=== PATIENT | male | born 1945 | race Caucasian/White ===

== ENCOUNTER 2018-07-29 16:36 | Inpatient (IN) | payer MEDICARE ==
[~2018-07-29] VITALS: Ht 180.3 cm; Wt 108.9 kg
--- NOTE | 2018-07-29 16:56 | RAD ---
PQRS Compliance statement: One or more of the following individualized dose reduction techniques were utilized for this examination: 1. Automated exposure control. 2. Adjustment of the mA and/or kV according to patient size. 3. Use of iterative reconstruction technique. Indication:Possible CVA TECHNIQUE: CT head without IV contrast COMPARISON: None FINDINGS: No pathologic extra-axial or intra-axial fluid collection. The basal cisterns are within normal limits. No acute intracranial bleed. Prominent ventricles. No focal loss of chi-white differentiation. Orbits are within normal limits. No suspicious calvarial lesion. Visualized paranasal sinuses and mastoid air cells are clear. IMPRESSION: 1. No acute intracranial bleed. If concern for acute ischemic stroke is high, please consider MRI brain. 2. Prominent ventricles. Correlate with symptoms of normal pressure hydrocephalus. Critical findings were identified on 07/29/2018 4:48 PM, read back and verified with Dr. Andres on 07/29/2018 4:[address] Georges Hneson DO. Electronically signed by: Georges Henson DO (07/29/2018 4:51 PM) [facility]
[2018-07-29 17:03] LABS: BASO # 0.1 x10^3/uL (0.0-0.2); BASO % 1 % (0-3); EOS # 0.1 x10^3/uL (0.0-0.7); EOS % 1 % (0-3); HEMATOCRIT 49.1 % (39.0-53.0); HEMOGLOBIN 16.8 g/dL (13.0-17.5); LYMPH # 2.3 x10^3/uL (1.0-4.8); LYMPH % 22 % (24-48); MEAN CORPUSCULAR HEMOGLOBIN 32 pg (25-35); MEAN CORPUSCULAR HGB CONC 34 g/dL (31-37); MEAN CORPUSCULAR VOLUME 93 fL (79-100); MONO # 1.1 x10^3/uL (0.0-1.1); MONO % 10 % (0-9); NEUT # 6.9 x10^3uL (1.8-7.7); NEUT % 65 % (31-73); PLATELET COUNT 220 x10^3/uL (140-400); RED BLOOD COUNT 5.27 x10^6/uL (4.30-5.70); RED CELL DISTRIBUTION WIDTH 13.4 % (11.5-14.5); WHITE BLOOD COUNT 10.5 x10^3/uL (4.0-11.0)
[2018-07-29 17:16] LABS: CREATININE 1.2 mg/dL (0.7-1.3); GFR 59.7; POTASSIUM 3.1 mmol/L (3.5-5.1)
[2018-07-29 17:22] LABS: ALBUMIN 3.8 g/dL (3.4-5.0); ALBUMIN/GLOBULIN RATIO 0.9 (1.0-1.7); TOTAL BILIRUBIN 0.5 mg/dL (0.2-1.0); TOTAL PROTEIN 8.1 g/dL (6.4-8.2)
[2018-07-29] MEDS ORDERED: LABETALOL 20 MG/4 ML DISP.SYRIN. IVP ONE (17:30)
--- NOTE | 2018-07-29 17:43 | PHYS DOC ---
Past Medical History Past Medical History: Anxiety, Hypertension Past Surgical History: Other Additional Past Surgical Histo: HERNIA Alcohol Use: Sober Additional Information: STATES THAT HE HAS BEEN DRY FOR 2 YRS Social History Narrative: DENIES DRUG USE Adult General Chief Complaint Chief Complaint: NEURO SYMPTOMS/DEFICITS [facility] HPI Patient is a 72-year-old male who arrives via EMS with report of signs and symptoms of stroke. EMS reports that when they had arrived the patient appeared to have a left-sided visual defect as well as weakness in his left philatelic consultant strength of his hand. Patient has family member who had found that patient was googling stroke signs and symptoms about an hour prior to his arrival and she went to check on him later and found that he was very anxious. At this time, patient denies any lateralizing weakness. He denies any chest pain or shortness of breath. He also denies any abdominal pain, nausea or vomiting. Additional history is a bit limited as patient is poor historian. Review of Systems Review of Systems Constitutional: Denies fever or chills [] Respiratory: Denies cough or shortness of breath [] Cardiovascular: No additional information not addressed in HPI [] GI: Denies abdominal pain, nausea, vomiting, bloody stools or diarrhea [] Neurologic: Denies headache, and sent weakness left hand philatelic consultant strength without sensory changes [] All other systems were reviewed and found to be within normal limits, except as documented in this note. Current Medications Current Medications Current Medications Medications (Trade) Dose Ordered Sig/Sarina Start Time Stop Time Status Last Admin Dose Admin Labetalol HCl (Normodyne Iv Push) 10 mg 1X ONCE 07/29/18 17:30 07/29/18 17:31 DC 07/29/18 17:30 10 MG Lorazepam (Ativan) 1 mg 1X ONCE 07/29/18 17:45 07/29/18 17:47 DC Potassium Chloride (Klor-Con) 40 meq 1X ONCE 07/29/18 17:45 07/29/18 17:46 DC Sodium Chloride 1,000 ml @ 1,000 mls/hr 1X ONCE 07/29/18 17:45 07/29/18 18:44 Allergies Allergies Allergies Coded Allergies Type Severity Reaction Last Updated Verified No Known Drug Allergies 07/29/18 No Physical Exam Physical Exam Constitutional: Well developed, well nourished, no acute distress, non-toxic appearance. [] HENT: Normocephalic, atraumatic, bilateral external ears normal, oropharynx moist, no oral exudates, nose normal. [] Eyes: PERRLA, EOMI, conjunctiva normal, no discharge. [] Neck: Normal range of motion, no tenderness, supple, no stridor. [] Cardiovascular:Heart rate regular rhythm, no murmur [] Lungs & Thorax: Bilateral breath sounds clear to auscultation [] Abdomen: Bowel sounds normal, soft, no tenderness, no masses, no pulsatile masses. [] Skin: Warm, dry, no erythema, no rash. [] Back: No tenderness, no CVA tenderness. [] Extremities: No tenderness, no cyanosis, no clubbing, ROM intact, no edema. [] Neurologic: Alert and oriented X 2, normal motor function, normal sensory function, no focal deficits noted. Unable to assess for pronator drift as patient having difficulty understanding commands. [] Psychologic: Patient appears moderately anxious.. [] Current Patient Data Vital Signs Vital Signs Date Time Temp Pulse Resp B/P (MAP) Pulse Ox O2 Delivery O2 Flow Rate FiO2 07/29/18 17:30 89 188/80 07/29/18 17:15 22 100 07/29/18 16:36 97.5 Room Air 97.5 Lab Values Laboratory Tests Test 07/29/18 16:50 07/29/18 16:55 White Blood Count 10.5 x10^3/uL (4.0-11.0) Red Blood Count 5.27 x10^6/uL (4.30-5.70) Hemoglobin 16.8 g/dL (13.0-17.5) Hematocrit 49.1 % (39.0-53.0) Mean Corpuscular Volume 93 fL (79-100) Mean Corpuscular Hemoglobin 32 pg (25-35) Mean Corpuscular Hemoglobin Concent 34 g/dL (31-37) Red Cell Distribution Width 13.4 % (11.5-14.5) Platelet Count 220 x10^3/uL (140-400) Neutrophils (%) (Auto) 65 % (31-73) Lymphocytes (%) (Auto) 22 % (24-48) L Monocytes (%) (Auto) 10 % (0-9) H Eosinophils (%) (Auto) 1 % (0-3) Basophils (%) (Auto) 1 % (0-3) Neutrophils # (Auto) 6.9 x10^3uL (1.8-7.7) Lymphocytes # (Auto) 2.3 x10^3/uL (1.0-4.8) Monocytes # (Auto) 1.1 x10^3/uL (0.0-1.1) Eosinophils # (Auto) 0.1 x10^3/uL (0.0-0.7) Basophils # (Auto) 0.1 x10^3/uL (0.0-0.2) Prothrombin Time 13.0 SEC (11.7-14.0) Prothrombin Time INR 1.0 (0.8-1.1) Sodium Level 134 mmol/L (136-145) L Potassium Level 3.1 mmol/L (3.5-5.1) L Chloride Level 97 mmol/L (98-107) L Carbon Dioxide Level 26 mmol/L (21-32) Anion Gap 11 (6-14) Blood Urea Nitrogen 12 mg/dL (8-26) Creatinine 1.2 mg/dL (0.7-1.3) Estimated GFR (Cockcroft-Gault) 59.7 BUN/Creatinine Ratio 10 (6-20) Glucose Level 134 mg/dL (70-99) H Calcium Level 10.0 mg/dL (8.5-10.1) Magnesium Level 2.0 mg/dL (1.8-2.4) Total Bilirubin 0.5 mg/dL (0.2-1.0) Aspartate Amino Transferase (AST) 34 U/L (15-37) Alanine Aminotransferase (ALT) 74 U/L (16-63) H Alkaline Phosphatase 85 U/L (46-116) Troponin I Quantitative < 0.017 ng/mL (0.000-0.055) Total Protein 8.1 g/dL (6.4-8.2) Albumin 3.8 g/dL (3.4-5.0) Albumin/Globulin Ratio 0.9 (1.0-1.7) L Thyroid Stimulating Hormone (TSH) 5.384 uIU/mL (0.358-3.74) H Ethyl Alcohol Level < 10 mg/dL (0-10) Glucose (Fingerstick) 125 mg/dL (70-99) H Laboratory Tests 07/29/18 16:50 Laboratory Tests 07/29/18 16:50 EKG EKG [] Radiology/Procedures Radiology/Procedures [] Impressions: CT head demonstrates no acute intracranial abnormalities. Course & Med Decision Making Course & Med Decision Making Pertinent Labs and Imaging studies reviewed. (See chart for details) [] Dragon Disclaimer Dragon Disclaimer This electronic medical record was generated, in whole or in part, using a voice recognition dictation system. Departure Departure Impression: Primary Impression: TIA (transient ischemic attack) Additional Impression: Hypertensive emergency, no CHF Disposition: ADMITTED INPATIENT Admitting Physician: Other Condition: IMPROVED (Dr. Chavez) Problem Qualifiers CARLOS GREGG Jr. DO Jul 29, 2018 17:43
[2018-07-29] MEDS ORDERED: POTASSIUM CHLORIDE 20 MEQ TABLET.ER. PO ONE (17:45)
[2018-07-29] MEDS ORDERED: IV NORMAL SALINE 1000ML BAG 1,000 ML IV ONE (17:45)
[2018-07-29] MEDS ORDERED: LABETALOL 20 MG/4 ML DISP.SYRIN. IVP PRN (19:00)
[2018-07-29] MEDS ORDERED: ACETAMINOPHEN 325 MG TABLET. PO PRN (19:00)
[2018-07-29] MEDS ORDERED: ACETAMINOPHEN 650 MG SUPP.RECT. PR PRN (19:00)
[2018-07-29] MEDS ORDERED: ASPIRIN RECTAL 300 MG SUPP. PR PRN (19:00)
[2018-07-29] MEDS ORDERED: MAG HYDROX/ALUMINUM HYD/SIMETH 30 ML ORAL.SUSP PO ONE (20:15)
--- NOTE | 2018-07-29 20:31 | PDOC1 ---
History and Physical Date of Admission Date of Admission DATE: 07/29/18 TIME: 20:25 Identification/Chief Complaint Chief Complaint Confusion Source Source: Caregiver, Chart review, Patient History of Present Illness History of Present Illness 72-year-old male w/ PMHx HTN, and ETOH abuse who arrives via EMS with report of signs and symptoms of stroke. EMS reports that when they had arrived the patient appeared to have a left-sided visual defect as well as weakness in his left superintendent automotive strength of his hand. Patient's sister notes she visited today and found he was googling stroke signs and symptoms about an hour prior to his arrival and she went to check on him later and found that he was very anxious. On exam he denies any focal weakness. He denies any chest pain or shortness of breath. He also denies any abdominal pain, nausea or vomiting. Unable to obtain review of systems in full as he is confused and somewhat difficult to redirect. He does note he was started on metoprolol and a "water pill" by his PCP recently but has been getting more confused over the past month and thinks he may have inadvertently taken 2 this evening. He also notes over the past 2 months he has had more difficulty urinating and has had 2 episodes of vertigo that caused him to vomit. One was today and the other was over a month ago. He further relates that he was a heavy alcohol drinker and notes he just quit recently. His sister states he stopped drinking heavily 2 years ago, but is not clear as to why. Much of history is supplemented by his sister Past Medical History Cardiovascular: HTN Pulmonary: No pertinent hx GI: No pertinent hx Heme/Onc: No pertinent hx Hepatobiliary: No pertinent hx Psych: No pertinent hx Rheumatologic: No pertinent hx Infectious disease: No pertinent hx ENT: No pertinent hx Renal/: No pertinent hx Endocrine: Diabetes Dermatology: No pertinent hx Past Surgical History Past Surgical History: No pertinent history Family History Family History: Diabetes, Hypertension Social History Smoke: No ALCOHOL: heavy Drugs: None Current Problem List Problem List Problems Medical Problems: (1) Hypertensive emergency, no CHF Status: Acute (2) TIA (transient ischemic attack) Status: Acute Current Medications Current Medications Current Medications Labetalol HCl (Normodyne Iv Push) 10 mg 1X ONCE IVP Last administered on at 17:30; Start 07/29/18 at 17:30; Stop 07/29/18 at 17:31; Status DC Potassium Chloride (Klor-Con) 40 meq 1X ONCE PO Last administered on at 17:57; Start 07/29/18 at 17:45; Stop 07/29/18 at 17:46; Status DC Sodium Chloride 1,000 ml @ 1,000 mls/hr 1X ONCE IV Last administered on at 17:57; Start 07/29/18 at 17:45; Stop 07/29/18 at 18:44; Status DC Lorazepam (Ativan) 1 mg 1X ONCE IV Last administered on 07/29/18at 17:58; Start 07/29/18 at 17:45; Stop 07/29/18 at 17:47; Status DC Labetalol HCl (Normodyne Iv Push) 10 mg PRN Q10MIN PRN IVP HYPERTENSION, SEE COMMENTS; Start 07/29/18 at 19:00 Acetaminophen (Tylenol) 650 mg PRN Q6HRS PRN PO TEMP > 100.4F; Start 07/29/18 at 19:00 Acetaminophen (Tylenol Supp) 650 mg PRN Q4HRS PRN MN TEMP > 100.4F; Start 07/29 at 19:00 Aspirin (Ecotrin) 325 mg DAILYWBKFT PO ; Start 07/29/18 at 20:00 Aspirin (Aspirin) 300 mg PRN DAILY PRN MN IF UNABLE TO TAKE PO; Start 07/29/18 at 19:00 Al Hydroxide/Mg Hydroxide (Mylanta Plus Xs) 30 ml 1X ONCE PO ; Start 07/29/18 at 20:15; Stop 07/29/18 at 20:16; Status DC Allergies Allergies: Coded Allergies: No Known Drug Allergies (Unverified , 07/29/18) ROS Review of System Difficult to obtain due to patient confused state Physical Exam General: Alert, Cooperative, No acute distress HEENT: Atraumatic, PERRLA, EOMI, Mucous membr. moist/pink Lungs: Clear to auscultation, Normal air movement Heart: S1S2, RRR, no gallops, no murmurs Abdomen: Normal bowel sounds, Soft, No tenderness, No hepatosplenomegaly, No masses Extremities: No clubbing, No cyanosis, No edema, Normal pulses, No tenderness/ swelling Skin: No rashes, No breakdown, No significant lesion Neuro: Normal gait, Normal speech, Strength at 5/5 X4 ext, Normal tone, Sensation intact, Cranial nerves 3-12 NL, Reflexes 2+ Psych/Mental Status: Other (Depressed, anxious, confused) Vitals Vitals Vital Signs Date Time Temp Pulse Resp B/P (MAP) Pulse Ox O2 Delivery O2 Flow Rate FiO2 07/29/18 19:20 68 21 99 07/29/18 17:30 188/80 07/29/18 16:36 97.5 Room Air 97.5 Labs Labs Laboratory Tests Test 07/29/18 16:50 07/29/18 16:55 White Blood Count 10.5 x10^3/uL (4.0-11.0) Red Blood Count 5.27 x10^6/uL (4.30-5.70) Hemoglobin 16.8 g/dL (13.0-17.5) Hematocrit 49.1 % (39.0-53.0) Mean Corpuscular Volume 93 fL (79-100) Mean Corpuscular Hemoglobin 32 pg (25-35) Mean Corpuscular Hemoglobin Concent 34 g/dL (31-37) Red Cell Distribution Width 13.4 % (11.5-14.5) Platelet Count 220 x10^3/uL (140-400) Neutrophils (%) (Auto) 65 % (31-73) Lymphocytes (%) (Auto) 22 % (24-48) Monocytes (%) (Auto) 10 % (0-9) Eosinophils (%) (Auto) 1 % (0-3) Basophils (%) (Auto) 1 % (0-3) Neutrophils # (Auto) 6.9 x10^3uL (1.8-7.7) Lymphocytes # (Auto) 2.3 x10^3/uL (1.0-4.8) Monocytes # (Auto) 1.1 x10^3/uL (0.0-1.1) Eosinophils # (Auto) 0.1 x10^3/uL (0.0-0.7) Basophils # (Auto) 0.1 x10^3/uL (0.0-0.2) Prothrombin Time 13.0 SEC (11.7-14.0) Prothromb Time International Ratio 1.0 (0.8-1.1) Sodium Level 134 mmol/L (136-145) Potassium Level 3.1 mmol/L (3.5-5.1) Chloride Level 97 mmol/L (98-107) Carbon Dioxide Level 26 mmol/L (21-32) Anion Gap 11 (6-14) Blood Urea Nitrogen 12 mg/dL (8-26) Creatinine 1.2 mg/dL (0.7-1.3) Estimated GFR (Cockcroft-Gault) 59.7 BUN/Creatinine Ratio 10 (6-20) Glucose Level 134 mg/dL (70-99) Calcium Level 10.0 mg/dL (8.5-10.1) Magnesium Level 2.0 mg/dL (1.8-2.4) Total Bilirubin 0.5 mg/dL (0.2-1.0) Aspartate Amino Transf (AST/SGOT) 34 U/L (15-37) Alanine Aminotransferase (ALT/SGPT) 74 U/L (16-63) Alkaline Phosphatase 85 U/L (46-116) Troponin I Quantitative < 0.017 ng/mL (0.000-0.055) Total Protein 8.1 g/dL (6.4-8.2) Albumin 3.8 g/dL (3.4-5.0) Albumin/Globulin Ratio 0.9 (1.0-1.7) Thyroid Stimulating Hormone (TSH) 5.384 uIU/mL (0.358-3.74) Ethyl Alcohol Level < 10 mg/dL (0-10) Glucose (Fingerstick) 125 mg/dL (70-99) Laboratory Tests Test 07/29/18 16:50 07/29/18 16:55 White Blood Count 10.5 x10^3/uL (4.0-11.0) Red Blood Count 5.27 x10^6/uL (4.30-5.70) Hemoglobin 16.8 g/dL (13.0-17.5) Hematocrit 49.1 % (39.0-53.0) Mean Corpuscular Volume 93 fL (79-100) Mean Corpuscular Hemoglobin 32 pg (25-35) Mean Corpuscular Hemoglobin Concent 34 g/dL (31-37) Red Cell Distribution Width 13.4 % (11.5-14.5) Platelet Count 220 x10^3/uL (140-400) Neutrophils (%) (Auto) 65 % (31-73) Lymphocytes (%) (Auto) 22 % (24-48) Monocytes (%) (Auto) 10 % (0-9) Eosinophils (%) (Auto) 1 % (0-3) Basophils (%) (Auto) 1 % (0-3) Neutrophils # (Auto) 6.9 x10^3uL (1.8-7.7) Lymphocytes # (Auto) 2.3 x10^3/uL (1.0-4.8) Monocytes # (Auto) 1.1 x10^3/uL (0.0-1.1) Eosinophils # (Auto) 0.1 x10^3/uL (0.0-0.7) Basophils # (Auto) 0.1 x10^3/uL (0.0-0.2) Prothrombin Time 13.0 SEC (11.7-14.0) Prothromb Time International Ratio 1.0 (0.8-1.1) Sodium Level 134 mmol/L (136-145) Potassium Level 3.1 mmol/L (3.5-5.1) Chloride Level 97 mmol/L (98-107) Carbon Dioxide Level 26 mmol/L (21-32) Anion Gap 11 (6-14) Blood Urea Nitrogen 12 mg/dL (8-26) Creatinine 1.2 mg/dL (0.7-1.3) Estimated GFR (Cockcroft-Gault) 59.7 BUN/Creatinine Ratio 10 (6-20) Glucose Level 134 mg/dL (70-99) Calcium Level 10.0 mg/dL (8.5-10.1) Magnesium Level 2.0 mg/dL (1.8-2.4) Total Bilirubin 0.5 mg/dL (0.2-1.0) Aspartate Amino Transf (AST/SGOT) 34 U/L (15-37) Alanine Aminotransferase (ALT/SGPT) 74 U/L (16-63) Alkaline Phosphatase 85 U/L (46-116) Troponin I Quantitative < 0.017 ng/mL (0.000-0.055) Total Protein 8.1 g/dL (6.4-8.2) Albumin 3.8 g/dL (3.4-5.0) Albumin/Globulin Ratio 0.9 (1.0-1.7) Thyroid Stimulating Hormone (TSH) 5.384 uIU/mL (0.358-3.74) Ethyl Alcohol Level < 10 mg/dL (0-10) Glucose (Fingerstick) 125 mg/dL (70-99) Images Images CT Head - 1. No acute intracranial bleed. If concern for acute ischemic stroke is high, please consider MRI brain. 2. Prominent ventricles. Correlate with symptoms of normal pressure hydrocephalus. VTE Prophylaxis Ordered VTE Prophylaxis Devices: Yes VTE Pharmacological Prophylaxi: No Assessment/Plan Assessment/Plan A/P: Left sided weakness - with visual deficit noted by his sister, but physical exam does not demonstrate this. He does not fully follow commands so scores an NIH 3. CT negative for bleed but positive for enlarged ventricles consistent with a possible history of NPH. I have discussed with neurology and we will continue to treat as an acute CVA with ASA, statin and MRI in the morning. PT/ OT to see HTN urgency - will reduce his BP by 25% right now, IV labetalol prn and continue his home meds Acute encephalopathy - likely 2/2 HTN, and it is unclear what his exact time course is, will cont neuro checks per stroke protocol HTN - as above ETOH abuse - with his confusion and age I will hesitate to place him on CIWA. Banana bag and clonidine are ok for now. No hx of seizures or DTs FEN - Cardiac diet PPX - SCDs FULL CODE Inpatient for new onset HTN urgency with left sided weakness, at least 2 midnights inpatient NEHA SINGH MD Jul 29, 2018 20:30
[2018-07-29 20:33] VITALS: BP 147/78
[2018-07-29 20:51] LABS: BARBITURATES NEG (NEG); BENZODIAZEPINES NEG (NEG); CANNABINOIDS NEG (NEG); COCAINE NEG (NEG); METHADONE NEG (NEG); OPIATES NEG (NEG); PHENCYCLIDINE NEG (NEG)
[2018-07-29 20:52] LABS: AMPHETAMINE/METHAMPHETAMINE NEG (NEG)
[2018-07-29] MEDS ORDERED: METO100T7 PO (21:38)
[2018-07-29] MEDS ORDERED: LORA0.5T96 PO (21:38)
[2018-07-29] MEDS ORDERED: METF500T16 PO (21:38)
[2018-07-29] MEDS ORDERED: DEXTROSE 50% 25 GM / 50ML DISP.SYRIN. IV PRN (21:45)
[2018-07-29 22:42] VITALS: BP 138/66
[2018-07-29] MEDS: traZODone 100 MG TABLET. PO PRN (22:54)
[2018-07-29] MEDS: ASPIRIN ENTERIC COATED 325 MG TABLET.DR. PO SCH (22:54)
[2018-07-29] MEDS ORDERED: LORazepam 1 MG TABLET PO PRN (23:00)
[2018-07-29] MEDS ORDERED: cloNIDine HCL 0.1 MG TABLET PO PRN (23:00)
[2018-07-30 02:45] VITALS: BP 122/61
--- NOTE | 2018-07-30 03:16 | RAD ---
PORTABLE CHEST 1V Clinical History: Stroke symptoms Technique: AP view of the chest was obtained at 07/29/2018 4:49 PM. Comparison: None. Findings: The heart is mildly enlarged. The pulmonary vasculature is normal. There is linear opacities in the left lung base. Impression: 1. Mild cardiomegaly. 2. Mild left basal infiltrate likely discoid atelectasis. Electronically signed by: Tonny Fernandez III, MD (07/30/2018 3:11 AM) [id number]
[2018-07-30 04:09] LABS: BASO % 1 % (0-3); EOS # 0.1 x10^3/uL (0.0-0.7); EOS % 1 % (0-3); HEMOGLOBIN 15.6 g/dL (13.0-17.5); LYMPH # 1.9 x10^3/uL (1.0-4.8); LYMPH % 22 % (24-48); MEAN CORPUSCULAR HEMOGLOBIN 32 pg (25-35); MEAN CORPUSCULAR HGB CONC 34 g/dL (31-37); MEAN CORPUSCULAR VOLUME 94 fL (79-100); MONO # 0.9 x10^3/uL (0.0-1.1); MONO % 10 % (0-9); NEUT # 5.9 x10^3uL (1.8-7.7); NEUT % 66 % (31-73); PLATELET COUNT 196 x10^3/uL (140-400); RED BLOOD COUNT 4.88 x10^6/uL (4.30-5.70); RED CELL DISTRIBUTION WIDTH 13.5 % (11.5-14.5); WHITE BLOOD COUNT 8.8 x10^3/uL (4.0-11.0)
[2018-07-30 04:27] LABS: CALCIUM 9.1 mg/dL (8.5-10.1); GFR 73.7; POTASSIUM 3.5 mmol/L (3.5-5.1)
[2018-07-30 04:36] LABS: CHOLESTEROL/HDL RATIO 4.8
[2018-07-30 07:00] VITALS: BP 126/60
[2018-07-30] MEDS: INSULIN LISPRO 300 UNITS/3 ML INSULN.PEN. SQ SCH ×3 (08:00→17:00)
[2018-07-30] MEDS: ASPIRIN ENTERIC COATED 325 MG TABLET.DR. PO SCH (08:37)
[2018-07-30] MEDS: METOPROLOL SUCC 24HR ER 100 MG TAB.ER.24H. PO SCH (08:38)
[2018-07-30] MEDS ORDERED: MULTIVIT INFUSN,ADULT 4,VIT K 10 ML, THIAMINE INJ 100 MG, FOLIC ACID INJ 1 MG in IV NOR... IV SCH (09:00)
[2018-07-30] MEDS ORDERED: KETO15CR2 TP (09:51)
[2018-07-30] MEDS ORDERED: HYDR50TA6 PO (09:51)
--- NOTE | 2018-07-30 10:42 | RAD ---
EXAM: Carotid Doppler sonogram. HISTORY: Transient ischemic attack. TECHNIQUE: Taylor scale and color Doppler sonographic evaluation of the neck with spectral waveform analysis was performed and static images are submitted for review. FINDINGS: There is minimal atherosclerotic plaque within the carotid bifurcations. The peak systolic velocity within the right common carotid artery is 104 cm/sec. The peak systolic velocity within the right internal carotid artery is 74 cm/sec and the end diastolic velocity within the right internal carotid artery is 23 cm/sec. The right ICA/CCA ratio is 1.04. The peak systolic velocity within the left common carotid artery is 103 cm/sec. The peak systolic velocity within the left internal carotid artery is 89 cm/sec and the end diastolic velocity within the left internal carotid artery is 29 cm/sec. The left ICA/CCA ratio is 0.95. There is normal antegrade flow within both vertebral arteries. IMPRESSION: No Doppler evidence of hemodynamically significant stenosis within the carotid or vertebral arteries. PQRS Compliance Statement - Stenosis calculations for CT, MR and conventional angiography are based upon measurement of the distal ICA diameter in accordance with the NASCET methodology. Stenosis calculations for carotid ultrasound studies are derived from validated velocity criteria which are known to correlate with the NASCET methodology. Electronically signed by: Jenn Gardner MD (07/30/2018 10:37 AM) [id number]
[2018-07-30 10:50] VITALS: BP 135/73
[2018-07-30] MEDS ORDERED: ONDANSETRON PF 4 MG/2 ML VIAL. IV PRN (11:00)
--- NOTE | 2018-07-30 11:32 | NUR ---
SS following following for discharge planning. SS reviewed pt chart. Pt is from home with spouse and currently on room air. PT recommended home when goals are met. No discharge needs noted at this time. SS will continue to follow for pending discharge needs.
[2018-07-30] MEDS: KETOCONAZOLE 2% TOPICAL CREAM 15GM TUBE. TP SCH ×2 (11:56→21:00)
[2018-07-30] MEDS: hydroCHLOROthiazide 25 MG TABLET PO SCH (11:57)
--- NOTE | 2018-07-30 13:21 | RAD ---
EXAM: Brain MRI without contrast. HISTORY: Transient ischemic attack. Ventriculomegaly. TECHNIQUE: Multiplanar, multisequence magnetic resonance imaging of the brain was performed without contrast. COMPARISON: CT dated 07/29/2018. FINDINGS: There is no restricted diffusion to suggest acute or subacute infarction. There is no mass effect or midline shift. There is ventricular enlargement likely due to cerebral volume loss. There is no periventricular signal abnormality to suggest transependymal flow of CSF in the setting of normal pressure hydrocephalus. There are few nonspecific focal areas of signal change within the cerebral white matter, likely due to chronic small vessel disease. The orbits are unremarkable. The paranasal sinuses mastoid air cells are unremarkable. There are normal flow voids within the cerebral vessels. IMPRESSION: 1. No acute intracranial finding. 2. Mild ventricular enlargement, likely due to cerebral volume loss. There is no convincing periventricular signal change to suggest of normal pressure hydrocephalus. 3. Nonspecific foci of signal change within the cerebral white matter, likely due to chronic small vessel disease. 4. Note is made that susceptibility images were not obtained due to inability of the patient to complete the exam. Electronically signed by: Jenn Gardner MD (07/30/2018 1:16 PM) [id number]
--- NOTE | 2018-07-30 14:13 | PDOC ---
PROGRESS NOTES Chief Complaint Chief Complaint .HTN Emergency History of Present Illness History of Present Illness Pt was seen and examined in his room: alert, oriented, cooperative, & conversational. His significant other, Ms. Ingris Lyman, was at his bedside. Patient was admitted for presenting with hypertensive emergency and left-sided weakness and VF deficit. Upon further work-up head: head CT showed inconclusive for CVA/TIA, possible normal pressure hydrocephalus. Pt was unable to finish MRI study due to symptoms. CXR: mild cardiomegaly, possible left-sided discord atelectasis. Pt is on cardiac diet, stroke protocol, and receiving Zofran in addition to current medications. Carotid Doppler negative for significant stenosis. Aside from mild elevation in BP, VSS. PCP: Yefri ([facility]) Vitals Vitals Vital Signs Date Time Temp Pulse Resp B/P (MAP) Pulse Ox O2 Delivery O2 Flow Rate FiO2 07/30/18 10:50 97.4 58 16 135/73 (93) 95 Room Air 97.4 Physical Exam General: Alert, Oriented X3, Cooperative, No acute distress Heart: Regular rate, No murmurs Lungs: Crackles Abdomen: Normal bowel sounds, Soft, No tenderness, No hepatosplenomegaly, No masses Extremities: No clubbing, No cyanosis, No edema, Normal pulses, No tenderness/ swelling Skin: No rashes, No breakdown, No significant lesion Labs LABS Laboratory Tests Test 07/29/18 16:50 07/29/18 16:55 07/29/18 20:24 07/29/18 21:04 White Blood Count 10.5 x10^3/uL (4.0-11.0) Red Blood Count 5.27 x10^6/uL (4.30-5.70) Hemoglobin 16.8 g/dL (13.0-17.5) Hematocrit 49.1 % (39.0-53.0) Mean Corpuscular Volume 93 fL (79-100) Mean Corpuscular Hemoglobin 32 pg (25-35) Mean Corpuscular Hemoglobin Concent 34 g/dL (31-37) Red Cell Distribution Width 13.4 % (11.5-14.5) Platelet Count 220 x10^3/uL (140-400) Neutrophils (%) (Auto) 65 % (31-73) Lymphocytes (%) (Auto) 22 % (24-48) Monocytes (%) (Auto) 10 % (0-9) Eosinophils (%) (Auto) 1 % (0-3) Basophils (%) (Auto) 1 % (0-3) Neutrophils # (Auto) 6.9 x10^3uL (1.8-7.7) Lymphocytes # (Auto) 2.3 x10^3/uL (1.0-4.8) Monocytes # (Auto) 1.1 x10^3/uL (0.0-1.1) Eosinophils # (Auto) 0.1 x10^3/uL (0.0-0.7) Basophils # (Auto) 0.1 x10^3/uL (0.0-0.2) Prothrombin Time 13.0 SEC (11.7-14.0) Prothromb Time International Ratio 1.0 (0.8-1.1) Sodium Level 134 mmol/L (136-145) Potassium Level 3.1 mmol/L (3.5-5.1) Chloride Level 97 mmol/L (98-107) Carbon Dioxide Level 26 mmol/L (21-32) Anion Gap 11 (6-14) Blood Urea Nitrogen 12 mg/dL (8-26) Creatinine 1.2 mg/dL (0.7-1.3) Estimated GFR (Cockcroft-Gault) 59.7 BUN/Creatinine Ratio 10 (6-20) Glucose Level 134 mg/dL (70-99) Calcium Level 10.0 mg/dL (8.5-10.1) Magnesium Level 2.0 mg/dL (1.8-2.4) Total Bilirubin 0.5 mg/dL (0.2-1.0) Aspartate Amino Transf (AST/SGOT) 34 U/L (15-37) Alanine Aminotransferase (ALT/SGPT) 74 U/L (16-63) Alkaline Phosphatase 85 U/L (46-116) Troponin I Quantitative < 0.017 ng/mL (0.000-0.055) Total Protein 8.1 g/dL (6.4-8.2) Albumin 3.8 g/dL (3.4-5.0) Albumin/Globulin Ratio 0.9 (1.0-1.7) Thyroid Stimulating Hormone (TSH) 5.384 uIU/mL (0.358-3.74) Ethyl Alcohol Level < 10 mg/dL (0-10) Glucose (Fingerstick) 125 mg/dL (70-99) 131 mg/dL (70-99) Urine Opiates Screen Neg (NEG) Urine Methadone Screen Neg (NEG) Urine Barbiturates Neg (NEG) Urine Phencyclidine Screen Neg (NEG) Urine Amphetamine/Methamphetamine Neg (NEG) Urine Benzodiazepines Screen Neg (NEG) Urine Cocaine Screen Neg (NEG) Urine Cannabinoids Screen Neg (NEG) Urine Ethyl Alcohol Neg (NEG) Test 07/30/18 02:50 07/30/18 07:26 07/30/18 11:33 White Blood Count 8.8 x10^3/uL (4.0-11.0) Red Blood Count 4.88 x10^6/uL (4.30-5.70) Hemoglobin 15.6 g/dL (13.0-17.5) Hematocrit 46.0 % (39.0-53.0) Mean Corpuscular Volume 94 fL (79-100) Mean Corpuscular Hemoglobin 32 pg (25-35) Mean Corpuscular Hemoglobin Concent 34 g/dL (31-37) Red Cell Distribution Width 13.5 % (11.5-14.5) Platelet Count 196 x10^3/uL (140-400) Neutrophils (%) (Auto) 66 % (31-73) Lymphocytes (%) (Auto) 22 % (24-48) Monocytes (%) (Auto) 10 % (0-9) Eosinophils (%) (Auto) 1 % (0-3) Basophils (%) (Auto) 1 % (0-3) Neutrophils # (Auto) 5.9 x10^3uL (1.8-7.7) Lymphocytes # (Auto) 1.9 x10^3/uL (1.0-4.8) Monocytes # (Auto) 0.9 x10^3/uL (0.0-1.1) Eosinophils # (Auto) 0.1 x10^3/uL (0.0-0.7) Basophils # (Auto) 0.0 x10^3/uL (0.0-0.2) Sodium Level 138 mmol/L (136-145) Potassium Level 3.5 mmol/L (3.5-5.1) Chloride Level 101 mmol/L (98-107) Carbon Dioxide Level 25 mmol/L (21-32) Anion Gap 12 (6-14) Blood Urea Nitrogen 11 mg/dL (8-26) Creatinine 1.0 mg/dL (0.7-1.3) Estimated GFR (Cockcroft-Gault) 73.7 Glucose Level 112 mg/dL (70-99) Calcium Level 9.1 mg/dL (8.5-10.1) Triglycerides Level 105 mg/dL (0-150) Cholesterol Level 152 mg/dL (0-200) LDL Cholesterol, Calculated 99 mg/dL (0-100) VLDL Cholesterol, Calculated 21 mg/dL (0-40) Non-HDL Cholesterol Calculated 120 mg/dL (0-129) HDL Cholesterol 32 mg/dL (40-60) Cholesterol/HDL Ratio 4.8 Glucose (Fingerstick) 121 mg/dL (70-99) 142 mg/dL (70-99) Review of Systems Review of Systems GENERAL: no fever, no chills, no acute distress. CHEST: no chest pain, no murmur, no palpitation. LUNGS: pt reports mild respiratory distress but no pain upon inspiration. no wheezing. Assessment and Plan Assessmemt and Plan Assessment 1. Hypertensive Emergency, c/o CHF 2. TIA/CVA 3. No significant carotid stenosis on Doppler U/S; no significant bruit upon exam. Plan 1. Antihypertensives 2. awaiting neuro input. 3. continue cardiac diet. 4. continue stroke protocol. 5. PT/OT, labs. 6. continue home medications. Comment Review of Relevant I have reviewed the following items bebe (where applicable) has been applied. Labs Laboratory Tests Test 07/29/18 16:50 07/29/18 16:55 07/29/18 20:24 07/29/18 21:04 White Blood Count 10.5 x10^3/uL (4.0-11.0) Red Blood Count 5.27 x10^6/uL (4.30-5.70) Hemoglobin 16.8 g/dL (13.0-17.5) Hematocrit 49.1 % (39.0-53.0) Mean Corpuscular Volume 93 fL (79-100) Mean Corpuscular Hemoglobin 32 pg (25-35) Mean Corpuscular Hemoglobin Concent 34 g/dL (31-37) Red Cell Distribution Width 13.4 % (11.5-14.5) Platelet Count 220 x10^3/uL (140-400) Neutrophils (%) (Auto) 65 % (31-73) Lymphocytes (%) (Auto) 22 % (24-48) Monocytes (%) (Auto) 10 % (0-9) Eosinophils (%) (Auto) 1 % (0-3) Basophils (%) (Auto) 1 % (0-3) Neutrophils # (Auto) 6.9 x10^3uL (1.8-7.7) Lymphocytes # (Auto) 2.3 x10^3/uL (1.0-4.8) Monocytes # (Auto) 1.1 x10^3/uL (0.0-1.1) Eosinophils # (Auto) 0.1 x10^3/uL (0.0-0.7) Basophils # (Auto) 0.1 x10^3/uL (0.0-0.2) Prothrombin Time 13.0 SEC (11.7-14.0) Prothromb Time International Ratio 1.0 (0.8-1.1) Sodium Level 134 mmol/L (136-145) Potassium Level 3.1 mmol/L (3.5-5.1) Chloride Level 97 mmol/L (98-107) Carbon Dioxide Level 26 mmol/L (21-32) Anion Gap 11 (6-14) Blood Urea Nitrogen 12 mg/dL (8-26) Creatinine 1.2 mg/dL (0.7-1.3) Estimated GFR (Cockcroft-Gault) 59.7 BUN/Creatinine Ratio 10 (6-20) Glucose Level 134 mg/dL (70-99) Calcium Level 10.0 mg/dL (8.5-10.1) Magnesium Level 2.0 mg/dL (1.8-2.4) Total Bilirubin 0.5 mg/dL (0.2-1.0) Aspartate Amino Transf (AST/SGOT) 34 U/L (15-37) Alanine Aminotransferase (ALT/SGPT) 74 U/L (16-63) Alkaline Phosphatase 85 U/L (46-116) Troponin I Quantitative < 0.017 ng/mL (0.000-0.055) Total Protein 8.1 g/dL (6.4-8.2) Albumin 3.8 g/dL (3.4-5.0) Albumin/Globulin Ratio 0.9 (1.0-1.7) Thyroid Stimulating Hormone (TSH) 5.384 uIU/mL (0.358-3.74) Ethyl Alcohol Level < 10 mg/dL (0-10) Glucose (Fingerstick) 125 mg/dL (70-99) 131 mg/dL (70-99) Urine Opiates Screen Neg (NEG) Urine Methadone Screen Neg (NEG) Urine Barbiturates Neg (NEG) Urine Phencyclidine Screen Neg (NEG) Urine Amphetamine/Methamphetamine Neg (NEG) Urine Benzodiazepines Screen Neg (NEG) Urine Cocaine Screen Neg (NEG) Urine Cannabinoids Screen Neg (NEG) Urine Ethyl Alcohol Neg (NEG) Test 07/30/18 02:50 07/30/18 07:26 07/30/18 11:33 White Blood Count 8.8 x10^3/uL (4.0-11.0) Red Blood Count 4.88 x10^6/uL (4.30-5.70) Hemoglobin 15.6 g/dL (13.0-17.5) Hematocrit 46.0 % (39.0-53.0) Mean Corpuscular Volume 94 fL (79-100) Mean Corpuscular Hemoglobin 32 pg (25-35) Mean Corpuscular Hemoglobin Concent 34 g/dL (31-37) Red Cell Distribution Width 13.5 % (11.5-14.5) Platelet Count 196 x10^3/uL (140-400) Neutrophils (%) (Auto) 66 % (31-73) Lymphocytes (%) (Auto) 22 % (24-48) Monocytes (%) (Auto) 10 % (0-9) Eosinophils (%) (Auto) 1 % (0-3) Basophils (%) (Auto) 1 % (0-3) Neutrophils # (Auto) 5.9 x10^3uL (1.8-7.7) Lymphocytes # (Auto) 1.9 x10^3/uL (1.0-4.8) Monocytes # (Auto) 0.9 x10^3/uL (0.0-1.1) Eosinophils # (Auto) 0.1 x10^3/uL (0.0-0.7) Basophils # (Auto) 0.0 x10^3/uL (0.0-0.2) Sodium Level 138 mmol/L (136-145) Potassium Level 3.5 mmol/L (3.5-5.1) Chloride Level 101 mmol/L (98-107) Carbon Dioxide Level 25 mmol/L (21-32) Anion Gap 12 (6-14) Blood Urea Nitrogen 11 mg/dL (8-26) Creatinine 1.0 mg/dL (0.7-1.3) Estimated GFR (Cockcroft-Gault) 73.7 Glucose Level 112 mg/dL (70-99) Calcium Level 9.1 mg/dL (8.5-10.1) Triglycerides Level 105 mg/dL (0-150) Cholesterol Level 152 mg/dL (0-200) LDL Cholesterol, Calculated 99 mg/dL (0-100) VLDL Cholesterol, Calculated 21 mg/dL (0-40) Non-HDL Cholesterol Calculated 120 mg/dL (0-129) HDL Cholesterol 32 mg/dL (40-60) Cholesterol/HDL Ratio 4.8 Glucose (Fingerstick) 121 mg/dL (70-99) 142 mg/dL (70-99) Laboratory Tests Test 07/29/18 16:50 07/29/18 16:55 07/29/18 20:24 07/29/18 21:04 White Blood Count 10.5 x10^3/uL (4.0-11.0) Red Blood Count 5.27 x10^6/uL (4.30-5.70) Hemoglobin 16.8 g/dL (13.0-17.5) Hematocrit 49.1 % (39.0-53.0) Mean Corpuscular Volume 93 fL (79-100) Mean Corpuscular Hemoglobin 32 pg (25-35) Mean Corpuscular Hemoglobin Concent 34 g/dL (31-37) Red Cell Distribution Width 13.4 % (11.5-14.5) Platelet Count 220 x10^3/uL (140-400) Neutrophils (%) (Auto) 65 % (31-73) Lymphocytes (%) (Auto) 22 % (24-48) Monocytes (%) (Auto) 10 % (0-9) Eosinophils (%) (Auto) 1 % (0-3) Basophils (%) (Auto) 1 % (0-3) Neutrophils # (Auto) 6.9 x10^3uL (1.8-7.7) Lymphocytes # (Auto) 2.3 x10^3/uL (1.0-4.8) Monocytes # (Auto) 1.1 x10^3/uL (0.0-1.1) Eosinophils # (Auto) 0.1 x10^3/uL (0.0-0.7) Basophils # (Auto) 0.1 x10^3/uL (0.0-0.2) Prothrombin Time 13.0 SEC (11.7-14.0) Prothromb Time International Ratio 1.0 (0.8-1.1) Sodium Level 134 mmol/L (136-145) Potassium Level 3.1 mmol/L (3.5-5.1) Chloride Level 97 mmol/L (98-107) Carbon Dioxide Level 26 mmol/L (21-32) Anion Gap 11 (6-14) Blood Urea Nitrogen 12 mg/dL (8-26) Creatinine 1.2 mg/dL (0.7-1.3) Estimated GFR (Cockcroft-Gault) 59.7 BUN/Creatinine Ratio 10 (6-20) Glucose Level 134 mg/dL (70-99) Calcium Level 10.0 mg/dL (8.5-10.1) Magnesium Level 2.0 mg/dL (1.8-2.4) Total Bilirubin 0.5 mg/dL (0.2-1.0) Aspartate Amino Transf (AST/SGOT) 34 U/L (15-37) Alanine Aminotransferase (ALT/SGPT) 74 U/L (16-63) Alkaline Phosphatase 85 U/L (46-116) Troponin I Quantitative < 0.017 ng/mL (0.000-0.055) Total Protein 8.1 g/dL (6.4-8.2) Albumin 3.8 g/dL (3.4-5.0) Albumin/Globulin Ratio 0.9 (1.0-1.7) Thyroid Stimulating Hormone (TSH) 5.384 uIU/mL (0.358-3.74) Ethyl Alcohol Level < 10 mg/dL (0-10) Glucose (Fingerstick) 125 mg/dL (70-99) 131 mg/dL (70-99) Urine Opiates Screen Neg (NEG) Urine Methadone Screen Neg (NEG) Urine Barbiturates Neg (NEG) Urine Phencyclidine Screen Neg (NEG) Urine Amphetamine/Methamphetamine Neg (NEG) Urine Benzodiazepines Screen Neg (NEG) Urine Cocaine Screen Neg (NEG) Urine Cannabinoids Screen Neg (NEG) Urine Ethyl Alcohol Neg (NEG) Test 07/30/18 02:50 07/30/18 07:26 07/30/18 11:33 White Blood Count 8.8 x10^3/uL (4.0-11.0) Red Blood Count 4.88 x10^6/uL (4.30-5.70) Hemoglobin 15.6 g/dL (13.0-17.5) Hematocrit 46.0 % (39.0-53.0) Mean Corpuscular Volume 94 fL (79-100) Mean Corpuscular Hemoglobin 32 pg (25-35) Mean Corpuscular Hemoglobin Concent 34 g/dL (31-37) Red Cell Distribution Width 13.5 % (11.5-14.5) Platelet Count 196 x10^3/uL (140-400) Neutrophils (%) (Auto) 66 % (31-73) Lymphocytes (%) (Auto) 22 % (24-48) Monocytes (%) (Auto) 10 % (0-9) Eosinophils (%) (Auto) 1 % (0-3) Basophils (%) (Auto) 1 % (0-3) Neutrophils # (Auto) 5.9 x10^3uL (1.8-7.7) Lymphocytes # (Auto) 1.9 x10^3/uL (1.0-4.8) Monocytes # (Auto) 0.9 x10^3/uL (0.0-1.1) Eosinophils # (Auto) 0.1 x10^3/uL (0.0-0.7) Basophils # (Auto) 0.0 x10^3/uL (0.0-0.2) Sodium Level 138 mmol/L (136-145) Potassium Level 3.5 mmol/L (3.5-5.1) Chloride Level 101 mmol/L (98-107) Carbon Dioxide Level 25 mmol/L (21-32) Anion Gap 12 (6-14) Blood Urea Nitrogen 11 mg/dL (8-26) Creatinine 1.0 mg/dL (0.7-1.3) Estimated GFR (Cockcroft-Gault) 73.7 Glucose Level 112 mg/dL (70-99) Calcium Level 9.1 mg/dL (8.5-10.1) Triglycerides Level 105 mg/dL (0-150) Cholesterol Level 152 mg/dL (0-200) LDL Cholesterol, Calculated 99 mg/dL (0-100) VLDL Cholesterol, Calculated 21 mg/dL (0-40) Non-HDL Cholesterol Calculated 120 mg/dL (0-129) HDL Cholesterol 32 mg/dL (40-60) Cholesterol/HDL Ratio 4.8 Glucose (Fingerstick) 121 mg/dL (70-99) 142 mg/dL (70-99) Medications Current Medications Labetalol HCl (Normodyne Iv Push) 10 mg 1X ONCE IVP Last administered on at 17:30; Start 07/29/18 at 17:30; Stop 07/29/18 at 17:31; Status DC Potassium Chloride (Klor-Con) 40 meq 1X ONCE PO Last administered on at 17:57; Start 07/29/18 at 17:45; Stop 07/29/18 at 17:46; Status DC Sodium Chloride 1,000 ml @ 1,000 mls/hr 1X ONCE IV Last administered on at 17:57; Start 07/29/18 at 17:45; Stop 07/29/18 at 18:44; Status DC Lorazepam (Ativan) 1 mg 1X ONCE IV Last administered on 07/29/18at 17:58; Start 07/29/18 at 17:45; Stop 07/29/18 at 17:47; Status DC Labetalol HCl (Normodyne Iv Push) 10 mg PRN Q10MIN PRN IVP HYPERTENSION, SEE COMMENTS; Start 07/29/18 at 19:00 Acetaminophen (Tylenol) 650 mg PRN Q6HRS PRN PO TEMP > 100.4F; Start 07/29/18 at 19:00 Acetaminophen (Tylenol Supp) 650 mg PRN Q4HRS PRN VT TEMP > 100.4F; Start 07/29 at 19:00 Aspirin (Ecotrin) 325 mg DAILYWBKFT PO Last administered on 07/30/18at 08:37; Start 07/29/18 at 20:00 Aspirin (Aspirin) 300 mg PRN DAILY PRN VT IF UNABLE TO TAKE PO; Start 07/29/18 at 19:00 Al Hydroxide/Mg Hydroxide (Mylanta Plus Xs) 30 ml 1X ONCE PO Last administered on 07/29/18at 21:05; Start 07/29/18 at 20:15; Stop 07/29/18 at 20:16 ; Status DC Trazodone HCl (Desyrel) 100 mg PRN QHS PRN PO INSOMNIA Last administered on 04/06at 22:54; Start 07/29/18 at 21:45 Metoprolol Succinate (Toprol Xl) 100 mg DAILY PO Last administered on at 08:38; Start 07/30/18 at 09:00 Insulin Human Lispro (HumaLOG) 0-5 UNITS TIDWMEALS SQ ; Start 07/30/18 at 08:00 Dextrose (Dextrose 50%-Water Syringe) 12.5 gm PRN Q15MIN PRN IV SEE COMMENTS; Start 07/29/18 at 21:45 Multivitamins 10 ml/Thiamine HCl 100 mg/Folic Acid 1 mg/Sodium Chloride 1,011.2 ml @ 100 mls/ hr DAILY IV ; Start 07/30/18 at 09:00; Stop 07/30/18 at 10:52; Status DC Lorazepam (Ativan) 0.5 mg PRN Q6HRS PRN PO For CIWA 8-14; Start 07/29/18 at 23: 00 Clonidine HCl (Catapres) 0.1 mg PRN Q1HR PRN PO SBP > 180 or DBP > 100, MRX3; Start 07/29/18 at 23:00 Influenza Virus Vaccine (Afluria Trivalent [id number] Syringe) 0.5 ml ONCE ONCE VAX IM Last administered on 07/30/18at 08:41; Start 07/30/18 at 09:00; Stop 05/07 at 09:01; Status DC Ketoconazole (Nizoral 2% Topical) 1 bonita BID TP Last administered on 07/30/18at 11:56; Start 07/30/18 at 11:00 Hydrochlorothiazide (Hydrodiuril) 25 mg DAILY PO Last administered on at 11:57; Start 07/30/18 at 11:00 Ondansetron HCl (Zofran) 4 mg PRN Q6HRS PRN IV NAUSEA/VOMITING; Start 07/30/18 at 11:00 Active Scripts Active Reported Ketoconazole 15 Gm Cream..g. 1 Bonita TP BID Hydrochlorothiazide Tablet (Hydrochlorothiazide) 50 Mg Tablet 25 Mg PO DAILY Metformin Hcl 500 Mg Tablet 250 Mg PO DAILY Ativan (Lorazepam) 0.5 Mg Tablet 0.5 Mg PO BID Metoprolol Tartrate 100 Mg Tablet 1 Tab PO DAILY Vitals/I & O Vital Sign - Last 24 Hours 07/29/18 07/29/18 07/29/18 07/29/18 16:36 17:15 17:30 17:30 Temp 97.5 97.5 Pulse 76 88 68 89 Resp 28 22 20 B/P (MAP) 197/98 (131) 188/80 Pulse Ox 98 100 100 O2 Delivery Room Air 07/29/18 07/29/18 07/29/18 07/29/18 18:00 18:16 19:03 19:20 Pulse 86 81 70 68 Resp 28 22 20 21 Pulse Ox 98 98 99 99 07/29/18 07/29/18 07/29/18 07/30/18 20:33 22:42 23:35 02:45 Temp 97.3 97.9 97.5 97.3 97.9 97.5 Pulse 72 61 63 Resp 16 16 16 B/P (MAP) 147/78 (101) 138/66 (90) 122/61 (81) Pulse Ox 96 94 94 O2 Delivery Room Air Room Air Room Air Room Air 07/30/18 07/30/18 07/30/18 07/30/18 07:00 08:00 08:38 10:50 Temp 97.7 97.4 97.7 97.4 Pulse 59 59 58 Resp 16 16 B/P (MAP) 126/60 (82) 126/60 135/73 (93) Pulse Ox 96 95 O2 Delivery Room Air Room Air Room Air Intake and Output 07/29/18 07/29/18 07/30/18 15:01 23:01 07:01 Intake Total 950 ml 240 ml Output Total 200 ml 650 ml Balance 750 ml -410 ml BALJIT KAISER III DO Jul 30, 2018 14:13
--- NOTE | 2018-07-30 14:35 | PDOC2 ---
NEUROLOGY CONSULT Date of Admission Date of Admission DATE: 07/30/18 TIME: 14:06 Reason for Consult Reason for Consult: IMPRESSION: Metabolic encephalopathy. Dizziness. Hypertensive urgency, SBP 197 mmHg. Beta-Roberto Carlos over dose, mild. Seizure x 1, Hx. HTN. Heavy alcohol drinking before abstinence. Memory decline, cognitive function impairment. DM. Obesity. No evidence of acute CVA this time. No convincing changes of NPH. RECOMMENDATIONS/PLAN: BP control. EEG. Lab: see orders. Treat medical diseases. Vit B1 100 mg daily. Discussed with his in all detail at bedside on 08/07/18. HISTORY OF THE PRESENT ILLNESS: 72-y-old male patient with above medical diseases took extra doses of Metoprolol as he thought his BP might be high. However, after taking extra pills he felt dizziness, light headiness, flushing sense from his LE to up UE and head, and he felt very weak. He was brought to the ER of [facility] due to concerns of acute CVA. No focalized sensory or motor deficits. Past Medical History Cardiovascular: HTN Pulmonary: No pertinent hx GI: No pertinent hx Heme/Onc: No pertinent hx Hepatobiliary: No pertinent hx Psych: No pertinent hx Rheumatologic: No pertinent hx Infectious disease: No pertinent hx ENT: No pertinent hx Renal/: No pertinent hx Endocrine: Diabetes Dermatology: No pertinent hx Past Surgical History No major surgery recently. Family History Diabetes, Hypertension Social History Smoke: No ALCOHOL: Drinking alcohol for many years, but drank heavily about 750 ml or more of Sammy Abdul with proved alcohol 80% on a daily basis for about 2 years before quitting about 2 years ago. Drugs: None Lives with his at home. ALLERGY: NKDA MEDICATIONS: Refer to [facility] REVIEW OF SYSTEMS: Constitutional: Obesity. Head: No recent traumatic brain or head injury. Skin: No edema, or rash. Ear: No infection. Eyes: No vision loss or color blindness. Nose: No bleeding or purulent discharges. Hearing: No hearing decrease. Neck: No injury. Cardiac: HTN, HLD. Pulmonary: COPD. GI: No GI ulcer, GI bleeding. Urinary/genital: No dysuria, incontinence, urinary retention. Endocrinologic: Diabetes Mellitus, obesity. Skeletomuscular: No muscular atrophy, deformity. Neurological: see HP. Psychiatric: Denies drug use/abuse. Otherwise, not [id number] review of systems. PHYSICAL EXAMINATION: General appearance is in subacute distress. HEENT: Normocephalic and nontraumatic. Eyes, nose, ears, and throat are unremarkable. Neck is supple. No lymphadenopathy. No crepitus. Cardiovascular: S1, S2, regular rate and rhythm. Pulmonary: Clear to auscultation bilaterally. Abdomen: Bowel sounds are positive. Abdomen is soft, nontender, and nondistended. Extremities: No rash, lesions, or edema. No restriction of range of motion NEUROLOGICAL EXAMINATION: Alert Oriented to time, place and person. PERRL. EOMI. CN: no focal findings. Muscle tone: within normal. Muscle strength: 5 DTR: 2 Plantar reflex: Flexor response bilaterally Gait: not examined in bed. Sensory exam: no abnormal findings. No other cerebellar signs elicited. Current Medications Current Medications Current Medications Labetalol HCl (Normodyne Iv Push) 10 mg 1X ONCE IVP Last administered on 17:30; Start 07/29/18 at 17:30; Stop 07/29/18 at 17:31; Status DC Potassium Chloride (Klor-Con) 40 meq 1X ONCE PO Last administered on 17:57; Start 07/29/18 at 17:45; Stop 07/29/18 at 17:46; Status DC Sodium Chloride 1,000 ml @ 1,000 mls/hr 1X ONCE IV Last administered on 17:57; Start 07/29/18 at 17:45; Stop 07/29/18 at 18:44; Status DC Lorazepam (Ativan) 1 mg 1X ONCE IV Last administered on 07/29/18at 17:58; Start 07/29/18 at 17:45; Stop 07/29/18 at 17:47; Status DC Labetalol HCl (Normodyne Iv Push) 10 mg PRN Q10MIN PRN IVP HYPERTENSION, SEE COMMENTS; Start 07/29/18 at 19:00 Acetaminophen (Tylenol) 650 mg PRN Q6HRS PRN PO TEMP > 100.4F; Start 07/29/18 at 19:00 Acetaminophen (Tylenol Supp) 650 mg PRN Q4HRS PRN PA TEMP > 100.4F; Start 07/29 at 19:00 Aspirin (Ecotrin) 325 mg DAILYWBKFT PO Last administered on 07/30/18at 08:37; Start 07/29/18 at 20:00 Aspirin (Aspirin) 300 mg PRN DAILY PRN PA IF UNABLE TO TAKE PO; Start 07/29/18 at 19:00 Al Hydroxide/Mg Hydroxide (Mylanta Plus Xs) 30 ml 1X ONCE PO Last administered on 07/29/18at 21:05; Start 07/29/18 at 20:15; Stop 07/29/18 at 20:16 ; Status DC Trazodone HCl (Desyrel) 100 mg PRN QHS PRN PO INSOMNIA Last administered on 04/06at 22:54; Start 07/29/18 at 21:45 Metoprolol Succinate (Toprol Xl) 100 mg DAILY PO Last administered on at 08:38; Start 07/30/18 at 09:00 Insulin Human Lispro (HumaLOG) 0-5 UNITS TIDWMEALS SQ ; Start 07/30/18 at 08:00 Dextrose (Dextrose 50%-Water Syringe) 12.5 gm PRN Q15MIN PRN IV SEE COMMENTS; Start 07/29/18 at 21:45 Multivitamins 10 ml/Thiamine HCl 100 mg/Folic Acid 1 mg/Sodium Chloride 1,011.2 ml @ 100 mls/ hr DAILY IV ; Start 07/30/18 at 09:00; Stop 07/30/18 at 10:52; Status DC Lorazepam (Ativan) 0.5 mg PRN Q6HRS PRN PO For CIWA 8-14; Start 07/29/18 at 23: 00 Clonidine HCl (Catapres) 0.1 mg PRN Q1HR PRN PO SBP > 180 or DBP > 100, MRX3; Start 07/29/18 at 23:00 Influenza Virus Vaccine (Afluria Trivalent [id number] Syringe) 0.5 ml ONCE ONCE VAX IM Last administered on 07/30/18at 08:41; Start 07/30/18 at 09:00; Stop 05/07 at 09:01; Status DC Ketoconazole (Nizoral 2% Topical) 1 bonita BID TP Last administered on 07/30/18at 11:56; Start 07/30/18 at 11:00 Hydrochlorothiazide (Hydrodiuril) 25 mg DAILY PO Last administered on at 11:57; Start 07/30/18 at 11:00 Ondansetron HCl (Zofran) 4 mg PRN Q6HRS PRN IV NAUSEA/VOMITING; Start 07/30/18 at 11:00 Active Scripts Active Reported Ketoconazole 15 Gm Cream..g. 1 Bonita TP BID Hydrochlorothiazide Tablet (Hydrochlorothiazide) 50 Mg Tablet 25 Mg PO DAILY Metformin Hcl 500 Mg Tablet 250 Mg PO DAILY Ativan (Lorazepam) 0.5 Mg Tablet 0.5 Mg PO BID Metoprolol Tartrate 100 Mg Tablet 1 Tab PO DAILY Allergies Allergies: Allergies Coded Allergies Type Severity Reaction Last Updated Verified No Known Drug Allergies 07/29/18 No ROS Review of System The patient denies any associated fevers, chills, headache, ear pain, rhinorrhea , sore throat, stiff neck, productive cough, chest pain, shortness of breath, back or flank pain, abdominal pain, nausea, vomiting, diarrhea, constipation, dysuria, rash, numbness, weakness, tingling, incontinence, difficulty ambulating, or diaphoresis. Physical Exam Physical Exam General: Well developed, well nourished, no acute distress, well appearing HEENT: Pupils equally round and reactive to light, EOMI, no discharge, normal conjunctiva Neck: Supple, no nuchal rigidity, no JVD, trachea midline, no tenderness Cardiac: RRR, no murmurs, no gallops, no rubs Chest/Lungs: CTAB, no wheeze, no rhonchi, no crackles Abdomen: soft, non-distended, no guarding, no peritoneal signs, non-tender Back: No tenderness Extremities: no edema, pulses intact, non-tender,capillary refill <3 sec bilateral upper and lower extremities, Neuro: Alert and oriented x 4, no focal deficits, normal speech Vitals Vitals: Vital Signs Date Time Temp Pulse Resp B/P (MAP) Pulse Ox O2 Delivery O2 Flow Rate FiO2 07/30/18 10:50 97.4 58 16 135/73 (93) 95 Room Air 97.4 Labs Labs Laboratory Tests Test 07/29/18 16:50 07/29/18 16:55 07/29/18 20:24 07/29/18 21:04 White Blood Count 10.5 x10^3/uL (4.0-11.0) Red Blood Count 5.27 x10^6/uL (4.30-5.70) Hemoglobin 16.8 g/dL (13.0-17.5) Hematocrit 49.1 % (39.0-53.0) Mean Corpuscular Volume 93 fL (79-100) Mean Corpuscular Hemoglobin 32 pg (25-35) Mean Corpuscular Hemoglobin Concent 34 g/dL (31-37) Red Cell Distribution Width 13.4 % (11.5-14.5) Platelet Count 220 x10^3/uL (140-400) Neutrophils (%) (Auto) 65 % (31-73) Lymphocytes (%) (Auto) 22 % (24-48) Monocytes (%) (Auto) 10 % (0-9) Eosinophils (%) (Auto) 1 % (0-3) Basophils (%) (Auto) 1 % (0-3) Neutrophils # (Auto) 6.9 x10^3uL (1.8-7.7) Lymphocytes # (Auto) 2.3 x10^3/uL (1.0-4.8) Monocytes # (Auto) 1.1 x10^3/uL (0.0-1.1) Eosinophils # (Auto) 0.1 x10^3/uL (0.0-0.7) Basophils # (Auto) 0.1 x10^3/uL (0.0-0.2) Prothrombin Time 13.0 SEC (11.7-14.0) Prothromb Time International Ratio 1.0 (0.8-1.1) Sodium Level 134 mmol/L (136-145) Potassium Level 3.1 mmol/L (3.5-5.1) Chloride Level 97 mmol/L (98-107) Carbon Dioxide Level 26 mmol/L (21-32) Anion Gap 11 (6-14) Blood Urea Nitrogen 12 mg/dL (8-26) Creatinine 1.2 mg/dL (0.7-1.3) Estimated GFR (Cockcroft-Gault) 59.7 BUN/Creatinine Ratio 10 (6-20) Glucose Level 134 mg/dL (70-99) Calcium Level 10.0 mg/dL (8.5-10.1) Magnesium Level 2.0 mg/dL (1.8-2.4) Total Bilirubin 0.5 mg/dL (0.2-1.0) Aspartate Amino Transf (AST/SGOT) 34 U/L (15-37) Alanine Aminotransferase (ALT/SGPT) 74 U/L (16-63) Alkaline Phosphatase 85 U/L (46-116) Troponin I Quantitative < 0.017 ng/mL (0.000-0.055) Total Protein 8.1 g/dL (6.4-8.2) Albumin 3.8 g/dL (3.4-5.0) Albumin/Globulin Ratio 0.9 (1.0-1.7) Thyroid Stimulating Hormone (TSH) 5.384 uIU/mL (0.358-3.74) Ethyl Alcohol Level < 10 mg/dL (0-10) Glucose (Fingerstick) 125 mg/dL (70-99) 131 mg/dL (70-99) Urine Opiates Screen Neg (NEG) Urine Methadone Screen Neg (NEG) Urine Barbiturates Neg (NEG) Urine Phencyclidine Screen Neg (NEG) Urine Amphetamine/Methamphetamine Neg (NEG) Urine Benzodiazepines Screen Neg (NEG) Urine Cocaine Screen Neg (NEG) Urine Cannabinoids Screen Neg (NEG) Urine Ethyl Alcohol Neg (NEG) Test 07/30/18 02:50 07/30/18 07:26 07/30/18 11:33 White Blood Count 8.8 x10^3/uL (4.0-11.0) Red Blood Count 4.88 x10^6/uL (4.30-5.70) Hemoglobin 15.6 g/dL (13.0-17.5) Hematocrit 46.0 % (39.0-53.0) Mean Corpuscular Volume 94 fL (79-100) Mean Corpuscular Hemoglobin 32 pg (25-35) Mean Corpuscular Hemoglobin Concent 34 g/dL (31-37) Red Cell Distribution Width 13.5 % (11.5-14.5) Platelet Count 196 x10^3/uL (140-400) Neutrophils (%) (Auto) 66 % (31-73) Lymphocytes (%) (Auto) 22 % (24-48) Monocytes (%) (Auto) 10 % (0-9) Eosinophils (%) (Auto) 1 % (0-3) Basophils (%) (Auto) 1 % (0-3) Neutrophils # (Auto) 5.9 x10^3uL (1.8-7.7) Lymphocytes # (Auto) 1.9 x10^3/uL (1.0-4.8) Monocytes # (Auto) 0.9 x10^3/uL (0.0-1.1) Eosinophils # (Auto) 0.1 x10^3/uL (0.0-0.7) Basophils # (Auto) 0.0 x10^3/uL (0.0-0.2) Sodium Level 138 mmol/L (136-145) Potassium Level 3.5 mmol/L (3.5-5.1) Chloride Level 101 mmol/L (98-107) Carbon Dioxide Level 25 mmol/L (21-32) Anion Gap 12 (6-14) Blood Urea Nitrogen 11 mg/dL (8-26) Creatinine 1.0 mg/dL (0.7-1.3) Estimated GFR (Cockcroft-Gault) 73.7 Glucose Level 112 mg/dL (70-99) Calcium Level 9.1 mg/dL (8.5-10.1) Triglycerides Level 105 mg/dL (0-150) Cholesterol Level 152 mg/dL (0-200) LDL Cholesterol, Calculated 99 mg/dL (0-100) VLDL Cholesterol, Calculated 21 mg/dL (0-40) Non-HDL Cholesterol Calculated 120 mg/dL (0-129) HDL Cholesterol 32 mg/dL (40-60) Cholesterol/HDL Ratio 4.8 Glucose (Fingerstick) 121 mg/dL (70-99) 142 mg/dL (70-99) Laboratory Tests Test 07/29/18 16:50 07/29/18 16:55 07/29/18 20:24 07/29/18 21:04 White Blood Count 10.5 x10^3/uL (4.0-11.0) Red Blood Count 5.27 x10^6/uL (4.30-5.70) Hemoglobin 16.8 g/dL (13.0-17.5) Hematocrit 49.1 % (39.0-53.0) Mean Corpuscular Volume 93 fL (79-100) Mean Corpuscular Hemoglobin 32 pg (25-35) Mean Corpuscular Hemoglobin Concent 34 g/dL (31-37) Red Cell Distribution Width 13.4 % (11.5-14.5) Platelet Count 220 x10^3/uL (140-400) Neutrophils (%) (Auto) 65 % (31-73) Lymphocytes (%) (Auto) 22 % (24-48) Monocytes (%) (Auto) 10 % (0-9) Eosinophils (%) (Auto) 1 % (0-3) Basophils (%) (Auto) 1 % (0-3) Neutrophils # (Auto) 6.9 x10^3uL (1.8-7.7) Lymphocytes # (Auto) 2.3 x10^3/uL (1.0-4.8) Monocytes # (Auto) 1.1 x10^3/uL (0.0-1.1) Eosinophils # (Auto) 0.1 x10^3/uL (0.0-0.7) Basophils # (Auto) 0.1 x10^3/uL (0.0-0.2) Prothrombin Time 13.0 SEC (11.7-14.0) Prothromb Time International Ratio 1.0 (0.8-1.1) Sodium Level 134 mmol/L (136-145) Potassium Level 3.1 mmol/L (3.5-5.1) Chloride Level 97 mmol/L (98-107) Carbon Dioxide Level 26 mmol/L (21-32) Anion Gap 11 (6-14) Blood Urea Nitrogen 12 mg/dL (8-26) Creatinine 1.2 mg/dL (0.7-1.3) Estimated GFR (Cockcroft-Gault) 59.7 BUN/Creatinine Ratio 10 (6-20) Glucose Level 134 mg/dL (70-99) Calcium Level 10.0 mg/dL (8.5-10.1) Magnesium Level 2.0 mg/dL (1.8-2.4) Total Bilirubin 0.5 mg/dL (0.2-1.0) Aspartate Amino Transf (AST/SGOT) 34 U/L (15-37) Alanine Aminotransferase (ALT/SGPT) 74 U/L (16-63) Alkaline Phosphatase 85 U/L (46-116) Troponin I Quantitative < 0.017 ng/mL (0.000-0.055) Total Protein 8.1 g/dL (6.4-8.2) Albumin 3.8 g/dL (3.4-5.0) Albumin/Globulin Ratio 0.9 (1.0-1.7) Thyroid Stimulating Hormone (TSH) 5.384 uIU/mL (0.358-3.74) Ethyl Alcohol Level < 10 mg/dL (0-10) Glucose (Fingerstick) 125 mg/dL (70-99) 131 mg/dL (70-99) Urine Opiates Screen Neg (NEG) Urine Methadone Screen Neg (NEG) Urine Barbiturates Neg (NEG) Urine Phencyclidine Screen Neg (NEG) Urine Amphetamine/Methamphetamine Neg (NEG) Urine Benzodiazepines Screen Neg (NEG) Urine Cocaine Screen Neg (NEG) Urine Cannabinoids Screen Neg (NEG) Urine Ethyl Alcohol Neg (NEG) Test 07/30/18 02:50 07/30/18 07:26 07/30/18 11:33 White Blood Count 8.8 x10^3/uL (4.0-11.0) Red Blood Count 4.88 x10^6/uL (4.30-5.70) Hemoglobin 15.6 g/dL (13.0-17.5) Hematocrit 46.0 % (39.0-53.0) Mean Corpuscular Volume 94 fL (79-100) Mean Corpuscular Hemoglobin 32 pg (25-35) Mean Corpuscular Hemoglobin Concent 34 g/dL (31-37) Red Cell Distribution Width 13.5 % (11.5-14.5) Platelet Count 196 x10^3/uL (140-400) Neutrophils (%) (Auto) 66 % (31-73) Lymphocytes (%) (Auto) 22 % (24-48) Monocytes (%) (Auto) 10 % (0-9) Eosinophils (%) (Auto) 1 % (0-3) Basophils (%) (Auto) 1 % (0-3) Neutrophils # (Auto) 5.9 x10^3uL (1.8-7.7) Lymphocytes # (Auto) 1.9 x10^3/uL (1.0-4.8) Monocytes # (Auto) 0.9 x10^3/uL (0.0-1.1) Eosinophils # (Auto) 0.1 x10^3/uL (0.0-0.7) Basophils # (Auto) 0.0 x10^3/uL (0.0-0.2) Sodium Level 138 mmol/L (136-145) Potassium Level 3.5 mmol/L (3.5-5.1) Chloride Level 101 mmol/L (98-107) Carbon Dioxide Level 25 mmol/L (21-32) Anion Gap 12 (6-14) Blood Urea Nitrogen 11 mg/dL (8-26) Creatinine 1.0 mg/dL (0.7-1.3) Estimated GFR (Cockcroft-Gault) 73.7 Glucose Level 112 mg/dL (70-99) Calcium Level 9.1 mg/dL (8.5-10.1) Triglycerides Level 105 mg/dL (0-150) Cholesterol Level 152 mg/dL (0-200) LDL Cholesterol, Calculated 99 mg/dL (0-100) VLDL Cholesterol, Calculated 21 mg/dL (0-40) Non-HDL Cholesterol Calculated 120 mg/dL (0-129) HDL Cholesterol 32 mg/dL (40-60) Cholesterol/HDL Ratio 4.8 Glucose (Fingerstick) 121 mg/dL (70-99) 142 mg/dL (70-99) LATONIA GRIFFITH MD Jul 30, 2018 14:35
[2018-07-30 14:49] VITALS: BP 143/66
--- NOTE | 2018-07-30 16:05 | CARD ---
MR#: [id number] Date of Study: 07/30/2018 Ordering Physician: BRYON FLORES, Referring Physician: NEHA SINGH Tech: Betsey Frederick [facility] AP[facility]OV[facility] REPORT EXAM: Two-dimensional and M-mode echocardiogram with Doppler and color Doppler. Other Information Quality : AverageHR: 63bpm Rhythm : NSR INDICATION CVA/TIA 2D DIMENSIONS RVDd2.7 (2.9-3.5cm)Left Atrium(2D)3.8 (1.6-4.0cm) IVSd1.6 (0.7-1.1cm)Aortic Root(2D)3.7 (2.0-3.7cm) LVDd5.0 (3.9-5.9cm)LVOT Diameter1.9 (1.8-2.4cm) PWd1.1 (0.7-1.1cm)LVDs3.7 (2.5-4.0cm) FS (%) 26.7 %SV60.8 ml LVEF(%)53.0 (>50%) Aortic Valve AoV Peak Johnnie.398.3cm/sAoV VTI86.8cm AO Peak GR.63.5mmHgLVOT Peak Johnnie.108.3cm/s AO Mean GR.37mmHgAVA (VMAX)0.78cm2 JASON (VTI)0.71cz4EU P 1/2 [id number] Mitral Valve MV E Mfdsdztw330.6cm/sMV E Peak Gr.4mmHg MV DECEL [id number] A Ijovbees416.7cm/s MV E Mean Gr.2mmHgE/A Ratio1.0 MV A [id number] Pulmonary Valve PV Peak Zkfhypvx311.8cm/s LEFT VENTRICLE The left ventricle is normal size. Proximal septal thickening is noted. The left ventricular systolic function is normal and the ejection fraction is within normal range. The Ejection Fraction is 55%. T here is normal LV segmental wall motion. Transmitral Doppler flow pattern is Grade I-abnormal relaxat ion pattern. RIGHT VENTRICLE The right ventricle is normal size. There is normal right ventricular wall thickness. The right ventr icular systolic function is normal. ATRIA The left atrium size is normal. The right atrium size is normal. The interatrial septum is intact wit h no evidence for an atrial septal defect or patent foramen ovale as noted on 2-D or Doppler imaging. AORTIC VALVE The aortic valve is moderately calcified. The aortic valve is trileaflet. Doppler and Color Flow reve aled trace aortic regurgitation. There is moderate to severe subvalvular aortic stenosis. Calculated aortic valve area is 0.9 cm2 with maximum pressure gradient of 63.5 mmHg and mean pressure gradient o f 37 mmHg. MITRAL VALVE The mitral valve is normal in structure and function. There is no evidence of mitral valve prolapse. There is no mitral valve stenosis. Doppler and Color-flow revealed trace to mild mitral regurgitation . TRICUSPID VALVE The tricuspid valve is normal in structure and function. Doppler and Color Flow revealed trace tricus pid regurgitation. There is no tricuspid valve prolapse or vegetation. There is no tricuspid valve st enosis. PULMONIC VALVE Doppler and Color Flow revealed trace pulmonic valvular regurgitation. There is no pulmonic valvular stenosis. GREAT VESSELS The aortic root is mildly enlarged. The ascending aorta is Mildly dilated. The IVC is normal in size and collapses >50% with inspiration. PERICARDIAL EFFUSION There is no evidence of significant pericardial effusion. Critical Notification Critical Value: No <Conclusion> The left ventricular systolic function is normal and the ejection fraction is within normal range. Th e Ejection Fraction is 55%. There is normal LV segmental wall motion. There is moderate to severe subvalvular aortic stenosis. Calculated aortic valve area is 0.9 cm2 wit h maximum pressure gradient of 63.5 mmHg and mean pressure gradient of 37 mmHg. Signed by : Randy Vickers, Electronically Approved : 07/30/2018 16:03:35
[2018-07-30] MEDS: THIAMINE 100 MG TABLET. PO SCH (17:04)
[2018-07-30] MEDS: CALCIUM CARBONATE 500 MG TAB.CHEW PO PRN (18:39)
[2018-07-30 19:10] VITALS: BP 169/67
[2018-07-30] MEDS ORDERED: BISACODYL 5 MG TABLET.DR. PO PRN (21:00)
[2018-07-30] MEDS: traZODone 100 MG TABLET. PO PRN (21:19)
[2018-07-30 23:15] VITALS: BP 121/51
[2018-07-31 03:04] VITALS: BP 126/65
[2018-07-31] MEDS: CALCIUM CARBONATE 500 MG TAB.CHEW PO PRN (03:48)
[2018-07-31 05:14] LABS: BASO % 0 % (0-3); EOS # 0.2 x10^3/uL (0.0-0.7); EOS % 4 % (0-3); HEMATOCRIT 43.9 % (39.0-53.0); HEMOGLOBIN 14.8 g/dL (13.0-17.5); LYMPH # 1.6 x10^3/uL (1.0-4.8); LYMPH % 24 % (24-48); MEAN CORPUSCULAR HEMOGLOBIN 32 pg (25-35); MEAN CORPUSCULAR HGB CONC 34 g/dL (31-37); MEAN CORPUSCULAR VOLUME 95 fL (79-100); MONO # 0.9 x10^3/uL (0.0-1.1); MONO % 14 % (0-9); NEUT # 3.9 x10^3uL (1.8-7.7); NEUT % 59 % (31-73); PLATELET COUNT 183 x10^3/uL (140-400); RED BLOOD COUNT 4.64 x10^6/uL (4.30-5.70); RED CELL DISTRIBUTION WIDTH 13.7 % (11.5-14.5); WHITE BLOOD COUNT 6.7 x10^3/uL (4.0-11.0)
[2018-07-31 05:23] LABS: ALBUMIN 3.3 g/dL (3.4-5.0); ALBUMIN/GLOBULIN RATIO 0.9 (1.0-1.7); CREATININE 1.1 mg/dL (0.7-1.3); POTASSIUM 3.2 mmol/L (3.5-5.1); TOTAL BILIRUBIN 0.4 mg/dL (0.2-1.0); TOTAL PROTEIN 6.9 g/dL (6.4-8.2)
[2018-07-31 07:00] VITALS: BP 142/66
[2018-07-31] MEDS: INSULIN LISPRO 300 UNITS/3 ML INSULN.PEN. SQ SCH ×2 (08:00→12:28)
[2018-07-31] MEDS: ASPIRIN ENTERIC COATED 325 MG TABLET.DR. PO SCH (08:30)
[2018-07-31] MEDS: THIAMINE 100 MG TABLET. PO SCH (08:30)
[2018-07-31] MEDS: KETOCONAZOLE 2% TOPICAL CREAM 15GM TUBE. TP SCH (08:30)
[2018-07-31] MEDS: hydroCHLOROthiazide 25 MG TABLET PO SCH (08:30)
[2018-07-31] MEDS: METOPROLOL SUCC 24HR ER 100 MG TAB.ER.24H. PO SCH (08:30)
--- NOTE | 2018-07-31 10:44 | EKG ---
[facility] [address] [place] [address] Test Date: 2018-07-29 Test Time: 16:58:52 Pat Name: QASIM MORE Department: Room: 210 1 Gender: M Manager Diabetes: : 1945 Requested By: CARLOS GREGG Order Number: [id number] Reading MD: Randy Vickers MD Measurements Intervals [place] Rate: 74 P: 38 VA: 194 QRS: -25 QRSD: 102 T: 20 QT: 420 QTc: 472 Interpretive Statements SINUS RHYTHM PAC'S Electronically Signed On 08-02-2018 10:27:20 YARN SALVAGER by Randy Vickers MD
--- NOTE | 2018-07-31 10:51 | EKG ---
[facility] [address] [place] [address] Test Date: 2018-07-29 Test Time: 17:00:45 Pat Name: QASIM MORE Department: Room: 210 1 Gender: M Survey Coordinator: : 1945 Requested By: NEHA SINGH Order Number: [id number] Reading MD: Randy Vickers MD Measurements Intervals [place] Rate: 73 P: 92 AK: 192 QRS: -21 QRSD: 102 T: 32 QT: 410 QTc: 456 Interpretive Statements SINUS RHYTHM PVC'S Electronically Signed On 08-02-2018 10:27:29 [employer] REPAIR SERVICE ESTIMATOR by Randy Vickers MD
[2018-07-31 11:00] VITALS: BP 145/68
--- NOTE | 2018-07-31 13:55 | PDOC ---
PROGRESS NOTES Chief Complaint Chief Complaint 1. Hypertensive emergency, no CHF. 2. TIA/CVA 3. no evidence of significant carotid stenosis on doppler 4. hypokalemia History of Present Illness History of Present Illness Pt was seen and examined in his room. He was admitted for presenting with hypertensive emergency and left-sided weakness and VF deficit. Upon further work-up head: head CT showed inconclusive for CVA/TIA, possible normal pressure hydrocephalus. Pt was unable to finish MRI study due to symptoms. CXR: mild cardiomegaly, possible left-sided discord atelectasis. Pt is on cardiac diet, stroke protocol, and receiving Zofran in addition to current medications. Carotid Doppler negative for significant stenosis. Aside from mild elevation in BP, VSS. ECHO: EF 55%; [id number] subvalvular aortic stenosis. 07/31/18: pt became hypokalemic (3.2). will give K+ replacement. awaiting EEG report. neurology is following. Vitals Vitals Vital Signs Date Time Temp Pulse Resp B/P (MAP) Pulse Ox O2 Delivery O2 Flow Rate FiO2 07/31/18 11:00 97.6 90 18 145/68 (93) 96 Room Air 97.6 Physical Exam General: Alert, Oriented X3, Cooperative, No acute distress Heart: Regular rate, No murmurs Lungs: Crackles Abdomen: Normal bowel sounds, Soft, No tenderness, No hepatosplenomegaly, No masses Extremities: No clubbing, No cyanosis, No edema, Normal pulses, No tenderness/ swelling Skin: No rashes, No breakdown, No significant lesion Labs LABS Laboratory Tests Test 07/30/18 16:34 07/30/18 20:24 07/31/18 03:40 07/31/18 08:06 Glucose (Fingerstick) 134 mg/dL (70-99) 106 mg/dL (70-99) 123 mg/dL (70-99) White Blood Count 6.7 x10^3/uL (4.0-11.0) Red Blood Count 4.64 x10^6/uL (4.30-5.70) Hemoglobin 14.8 g/dL (13.0-17.5) Hematocrit 43.9 % (39.0-53.0) Mean Corpuscular Volume 95 fL (79-100) Mean Corpuscular Hemoglobin 32 pg (25-35) Mean Corpuscular Hemoglobin Concent 34 g/dL (31-37) Red Cell Distribution Width 13.7 % (11.5-14.5) Platelet Count 183 x10^3/uL (140-400) Neutrophils (%) (Auto) 59 % (31-73) Lymphocytes (%) (Auto) 24 % (24-48) Monocytes (%) (Auto) 14 % (0-9) Eosinophils (%) (Auto) 4 % (0-3) Basophils (%) (Auto) 0 % (0-3) Neutrophils # (Auto) 3.9 x10^3uL (1.8-7.7) Lymphocytes # (Auto) 1.6 x10^3/uL (1.0-4.8) Monocytes # (Auto) 0.9 x10^3/uL (0.0-1.1) Eosinophils # (Auto) 0.2 x10^3/uL (0.0-0.7) Basophils # (Auto) 0.0 x10^3/uL (0.0-0.2) Sodium Level 139 mmol/L (136-145) Potassium Level 3.2 mmol/L (3.5-5.1) Chloride Level 101 mmol/L (98-107) Carbon Dioxide Level 28 mmol/L (21-32) Anion Gap 10 (6-14) Blood Urea Nitrogen 16 mg/dL (8-26) Creatinine 1.1 mg/dL (0.7-1.3) Estimated GFR (Cockcroft-Gault) 66.0 BUN/Creatinine Ratio 15 (6-20) Glucose Level 121 mg/dL (70-99) Calcium Level 9.0 mg/dL (8.5-10.1) Total Bilirubin 0.4 mg/dL (0.2-1.0) Aspartate Amino Transf (AST/SGOT) 22 U/L (15-37) Alanine Aminotransferase (ALT/SGPT) 54 U/L (16-63) Alkaline Phosphatase 68 U/L (46-116) Total Protein 6.9 g/dL (6.4-8.2) Albumin 3.3 g/dL (3.4-5.0) Albumin/Globulin Ratio 0.9 (1.0-1.7) Test 07/31/18 11:14 Glucose (Fingerstick) 161 mg/dL (70-99) Review of Systems Review of Systems general: no acute distress, no fever, no chills. skin: dry, intact, no rash. cardiac: no chest pain, no palpitation, no arrhythmia. respiratory: no shortness of breath, no wheezing, no cough. Assessment and Plan Assessmemt and Plan Assessment 1. Hypertensive emergency, no CHF. 2. TIA/CVA 3. no evidence of significant carotid stenosis on doppler 4. hypokalemia Plan 1. K+ replacement: one-time PO dose 2. BP control 3. cardiac monitoring 4. antihypertensives 5. cardiac diet 6. stroke protocol 7. PT/OT 8. labs 9. home medications 10. awaiting neuro EEG report; possible discharge if normal. Comment Review of Relevant I have reviewed the following items bebe (where applicable) has been applied. Labs Laboratory Tests Test 07/29/18 16:50 07/29/18 16:55 07/29/18 20:24 07/29/18 21:04 White Blood Count 10.5 x10^3/uL (4.0-11.0) Red Blood Count 5.27 x10^6/uL (4.30-5.70) Hemoglobin 16.8 g/dL (13.0-17.5) Hematocrit 49.1 % (39.0-53.0) Mean Corpuscular Volume 93 fL (79-100) Mean Corpuscular Hemoglobin 32 pg (25-35) Mean Corpuscular Hemoglobin Concent 34 g/dL (31-37) Red Cell Distribution Width 13.4 % (11.5-14.5) Platelet Count 220 x10^3/uL (140-400) Neutrophils (%) (Auto) 65 % (31-73) Lymphocytes (%) (Auto) 22 % (24-48) Monocytes (%) (Auto) 10 % (0-9) Eosinophils (%) (Auto) 1 % (0-3) Basophils (%) (Auto) 1 % (0-3) Neutrophils # (Auto) 6.9 x10^3uL (1.8-7.7) Lymphocytes # (Auto) 2.3 x10^3/uL (1.0-4.8) Monocytes # (Auto) 1.1 x10^3/uL (0.0-1.1) Eosinophils # (Auto) 0.1 x10^3/uL (0.0-0.7) Basophils # (Auto) 0.1 x10^3/uL (0.0-0.2) Prothrombin Time 13.0 SEC (11.7-14.0) Prothromb Time International Ratio 1.0 (0.8-1.1) Sodium Level 134 mmol/L (136-145) Potassium Level 3.1 mmol/L (3.5-5.1) Chloride Level 97 mmol/L (98-107) Carbon Dioxide Level 26 mmol/L (21-32) Anion Gap 11 (6-14) Blood Urea Nitrogen 12 mg/dL (8-26) Creatinine 1.2 mg/dL (0.7-1.3) Estimated GFR (Cockcroft-Gault) 59.7 BUN/Creatinine Ratio 10 (6-20) Glucose Level 134 mg/dL (70-99) Calcium Level 10.0 mg/dL (8.5-10.1) Magnesium Level 2.0 mg/dL (1.8-2.4) Total Bilirubin 0.5 mg/dL (0.2-1.0) Aspartate Amino Transf (AST/SGOT) 34 U/L (15-37) Alanine Aminotransferase (ALT/SGPT) 74 U/L (16-63) Alkaline Phosphatase 85 U/L (46-116) Troponin I Quantitative < 0.017 ng/mL (0.000-0.055) Total Protein 8.1 g/dL (6.4-8.2) Albumin 3.8 g/dL (3.4-5.0) Albumin/Globulin Ratio 0.9 (1.0-1.7) Thyroid Stimulating Hormone (TSH) 5.384 uIU/mL (0.358-3.74) Ethyl Alcohol Level < 10 mg/dL (0-10) Glucose (Fingerstick) 125 mg/dL (70-99) 131 mg/dL (70-99) Urine Opiates Screen Neg (NEG) Urine Methadone Screen Neg (NEG) Urine Barbiturates Neg (NEG) Urine Phencyclidine Screen Neg (NEG) Urine Amphetamine/Methamphetamine Neg (NEG) Urine Benzodiazepines Screen Neg (NEG) Urine Cocaine Screen Neg (NEG) Urine Cannabinoids Screen Neg (NEG) Urine Ethyl Alcohol Neg (NEG) Test 07/30/18 02:50 07/30/18 07:26 07/30/18 11:33 07/30/18 16:34 White Blood Count 8.8 x10^3/uL (4.0-11.0) Red Blood Count 4.88 x10^6/uL (4.30-5.70) Hemoglobin 15.6 g/dL (13.0-17.5) Hematocrit 46.0 % (39.0-53.0) Mean Corpuscular Volume 94 fL (79-100) Mean Corpuscular Hemoglobin 32 pg (25-35) Mean Corpuscular Hemoglobin Concent 34 g/dL (31-37) Red Cell Distribution Width 13.5 % (11.5-14.5) Platelet Count 196 x10^3/uL (140-400) Neutrophils (%) (Auto) 66 % (31-73) Lymphocytes (%) (Auto) 22 % (24-48) Monocytes (%) (Auto) 10 % (0-9) Eosinophils (%) (Auto) 1 % (0-3) Basophils (%) (Auto) 1 % (0-3) Neutrophils # (Auto) 5.9 x10^3uL (1.8-7.7) Lymphocytes # (Auto) 1.9 x10^3/uL (1.0-4.8) Monocytes # (Auto) 0.9 x10^3/uL (0.0-1.1) Eosinophils # (Auto) 0.1 x10^3/uL (0.0-0.7) Basophils # (Auto) 0.0 x10^3/uL (0.0-0.2) Sodium Level 138 mmol/L (136-145) Potassium Level 3.5 mmol/L (3.5-5.1) Chloride Level 101 mmol/L (98-107) Carbon Dioxide Level 25 mmol/L (21-32) Anion Gap 12 (6-14) Blood Urea Nitrogen 11 mg/dL (8-26) Creatinine 1.0 mg/dL (0.7-1.3) Estimated GFR (Cockcroft-Gault) 73.7 Glucose Level 112 mg/dL (70-99) Calcium Level 9.1 mg/dL (8.5-10.1) Triglycerides Level 105 mg/dL (0-150) Cholesterol Level 152 mg/dL (0-200) LDL Cholesterol, Calculated 99 mg/dL (0-100) VLDL Cholesterol, Calculated 21 mg/dL (0-40) Non-HDL Cholesterol Calculated 120 mg/dL (0-129) HDL Cholesterol 32 mg/dL (40-60) Cholesterol/HDL Ratio 4.8 Glucose (Fingerstick) 121 mg/dL (70-99) 142 mg/dL (70-99) 134 mg/dL (70-99) Test 07/30/18 20:24 07/31/18 03:40 07/31/18 08:06 07/31/18 11:14 Glucose (Fingerstick) 106 mg/dL (70-99) 123 mg/dL (70-99) 161 mg/dL (70-99) White Blood Count 6.7 x10^3/uL (4.0-11.0) Red Blood Count 4.64 x10^6/uL (4.30-5.70) Hemoglobin 14.8 g/dL (13.0-17.5) Hematocrit 43.9 % (39.0-53.0) Mean Corpuscular Volume 95 fL (79-100) Mean Corpuscular Hemoglobin 32 pg (25-35) Mean Corpuscular Hemoglobin Concent 34 g/dL (31-37) Red Cell Distribution Width 13.7 % (11.5-14.5) Platelet Count 183 x10^3/uL (140-400) Neutrophils (%) (Auto) 59 % (31-73) Lymphocytes (%) (Auto) 24 % (24-48) Monocytes (%) (Auto) 14 % (0-9) Eosinophils (%) (Auto) 4 % (0-3) Basophils (%) (Auto) 0 % (0-3) Neutrophils # (Auto) 3.9 x10^3uL (1.8-7.7) Lymphocytes # (Auto) 1.6 x10^3/uL (1.0-4.8) Monocytes # (Auto) 0.9 x10^3/uL (0.0-1.1) Eosinophils # (Auto) 0.2 x10^3/uL (0.0-0.7) Basophils # (Auto) 0.0 x10^3/uL (0.0-0.2) Sodium Level 139 mmol/L (136-145) Potassium Level 3.2 mmol/L (3.5-5.1) Chloride Level 101 mmol/L (98-107) Carbon Dioxide Level 28 mmol/L (21-32) Anion Gap 10 (6-14) Blood Urea Nitrogen 16 mg/dL (8-26) Creatinine 1.1 mg/dL (0.7-1.3) Estimated GFR (Cockcroft-Gault) 66.0 BUN/Creatinine Ratio 15 (6-20) Glucose Level 121 mg/dL (70-99) Calcium Level 9.0 mg/dL (8.5-10.1) Total Bilirubin 0.4 mg/dL (0.2-1.0) Aspartate Amino Transf (AST/SGOT) 22 U/L (15-37) Alanine Aminotransferase (ALT/SGPT) 54 U/L (16-63) Alkaline Phosphatase 68 U/L (46-116) Total Protein 6.9 g/dL (6.4-8.2) Albumin 3.3 g/dL (3.4-5.0) Albumin/Globulin Ratio 0.9 (1.0-1.7) Laboratory Tests Test 07/30/18 16:34 07/30/18 20:24 07/31/18 03:40 07/31/18 08:06 Glucose (Fingerstick) 134 mg/dL (70-99) 106 mg/dL (70-99) 123 mg/dL (70-99) White Blood Count 6.7 x10^3/uL (4.0-11.0) Red Blood Count 4.64 x10^6/uL (4.30-5.70) Hemoglobin 14.8 g/dL (13.0-17.5) Hematocrit 43.9 % (39.0-53.0) Mean Corpuscular Volume 95 fL (79-100) Mean Corpuscular Hemoglobin 32 pg (25-35) Mean Corpuscular Hemoglobin Concent 34 g/dL (31-37) Red Cell Distribution Width 13.7 % (11.5-14.5) Platelet Count 183 x10^3/uL (140-400) Neutrophils (%) (Auto) 59 % (31-73) Lymphocytes (%) (Auto) 24 % (24-48) Monocytes (%) (Auto) 14 % (0-9) Eosinophils (%) (Auto) 4 % (0-3) Basophils (%) (Auto) 0 % (0-3) Neutrophils # (Auto) 3.9 x10^3uL (1.8-7.7) Lymphocytes # (Auto) 1.6 x10^3/uL (1.0-4.8) Monocytes # (Auto) 0.9 x10^3/uL (0.0-1.1) Eosinophils # (Auto) 0.2 x10^3/uL (0.0-0.7) Basophils # (Auto) 0.0 x10^3/uL (0.0-0.2) Sodium Level 139 mmol/L (136-145) Potassium Level 3.2 mmol/L (3.5-5.1) Chloride Level 101 mmol/L (98-107) Carbon Dioxide Level 28 mmol/L (21-32) Anion Gap 10 (6-14) Blood Urea Nitrogen 16 mg/dL (8-26) Creatinine 1.1 mg/dL (0.7-1.3) Estimated GFR (Cockcroft-Gault) 66.0 BUN/Creatinine Ratio 15 (6-20) Glucose Level 121 mg/dL (70-99) Calcium Level 9.0 mg/dL (8.5-10.1) Total Bilirubin 0.4 mg/dL (0.2-1.0) Aspartate Amino Transf (AST/SGOT) 22 U/L (15-37) Alanine Aminotransferase (ALT/SGPT) 54 U/L (16-63) Alkaline Phosphatase 68 U/L (46-116) Total Protein 6.9 g/dL (6.4-8.2) Albumin 3.3 g/dL (3.4-5.0) Albumin/Globulin Ratio 0.9 (1.0-1.7) Test 07/31/18 11:14 Glucose (Fingerstick) 161 mg/dL (70-99) Medications Current Medications Labetalol HCl (Normodyne Iv Push) 10 mg 1X ONCE IVP Last administered on at 17:30; Start 07/29/18 at 17:30; Stop 07/29/18 at 17:31; Status DC Potassium Chloride (Klor-Con) 40 meq 1X ONCE PO Last administered on at 17:57; Start 07/29/18 at 17:45; Stop 07/29/18 at 17:46; Status DC Sodium Chloride 1,000 ml @ 1,000 mls/hr 1X ONCE IV Last administered on at 17:57; Start 07/29/18 at 17:45; Stop 07/29/18 at 18:44; Status DC Lorazepam (Ativan) 1 mg 1X ONCE IV Last administered on 07/29/18at 17:58; Start 07/29/18 at 17:45; Stop 07/29/18 at 17:47; Status DC Labetalol HCl (Normodyne Iv Push) 10 mg PRN Q10MIN PRN IVP HYPERTENSION, SEE COMMENTS; Start 07/29/18 at 19:00 Acetaminophen (Tylenol) 650 mg PRN Q6HRS PRN PO TEMP > 100.4F; Start 07/29/18 at 19:00 Acetaminophen (Tylenol Supp) 650 mg PRN Q4HRS PRN [place] TEMP > 100.4F; Start 07/29 at 19:00 Aspirin (Ecotrin) 325 mg DAILYWBKFT PO Last administered on 07/31/18at 08:30; Start 07/29/18 at 20:00 Aspirin (Aspirin) 300 mg PRN DAILY PRN [place] IF UNABLE TO TAKE PO; Start 07/29/18 at 19:00 Al Hydroxide/Mg Hydroxide (Mylanta Plus Xs) 30 ml 1X ONCE PO Last administered on 07/29/18at 21:05; Start 07/29/18 at 20:15; Stop 07/29/18 at 20:16 ; Status DC Trazodone HCl (Desyrel) 100 mg PRN QHS PRN PO INSOMNIA Last administered on 05/07at 21:19; Start 07/29/18 at 21:45 Metoprolol Succinate (Toprol Xl) 100 mg DAILY PO Last administered on at 08:30; Start 07/30/18 at 09:00 Insulin Human Lispro (HumaLOG) 0-5 UNITS TIDWMEALS SQ Last administered on 07/31at 12:28; Start 07/30/18 at 08:00 Dextrose (Dextrose 50%-Water Syringe) 12.5 gm PRN Q15MIN PRN IV SEE COMMENTS; Start 07/29/18 at 21:45 Multivitamins 10 ml/Thiamine HCl 100 mg/Folic Acid 1 mg/Sodium Chloride 1,011.2 ml @ 100 mls/ hr DAILY IV ; Start 07/30/18 at 09:00; Stop 07/30/18 at 10:52; Status DC Lorazepam (Ativan) 0.5 mg PRN Q6HRS PRN PO For CIWA 8-14; Start 07/29/18 at 23: 00 Clonidine HCl (Catapres) 0.1 mg PRN Q1HR PRN PO SBP > 180 or DBP > 100, MRX3; Start 07/29/18 at 23:00 Influenza Virus Vaccine (Afluria Trivalent [id number] Syringe) 0.5 ml ONCE ONCE VAX IM Last administered on 07/30/18at 08:41; Start 07/30/18 at 09:00; Stop 05/07 at 09:01; Status DC Ketoconazole (Nizoral 2% Topical) 1 bonita BID TP Last administered on 07/31/18 08:30; Start 07/30/18 at 11:00 Hydrochlorothiazide (Hydrodiuril) 25 mg DAILY PO Last administered on 08:30; Start 07/30/18 at 11:00 Ondansetron HCl (Zofran) 4 mg PRN Q6HRS PRN IV NAUSEA/VOMITING Last administered on 07/30/18at 14:39; Start 07/30/18 at 11:00 Thiamine Mononitrate (Vitamin B-1) 100 mg DAILY PO Last administered on 08:30; Start 07/30/18 at 16:00 Calcium Carbonate/ Glycine (Tums) 500 mg PRN AFTMEALHC PRN PO INDIGESTION Last administered on 07/31/18 03:48; Start 07/30/18 at 18:45 Bisacodyl (Dulcolax Tab) 5 mg PRN DAILY PRN PO CONSTIPATION Last administered on 07/30/18 21:18; Start 07/30/18 at 21:00 Active Scripts Active Reported Ketoconazole 15 Gm Cream..g. 1 Bonita TP BID Hydrochlorothiazide Tablet (Hydrochlorothiazide) 50 Mg Tablet 25 Mg PO DAILY Metformin Hcl 500 Mg Tablet 250 Mg PO DAILY Ativan (Lorazepam) 0.5 Mg Tablet 0.5 Mg PO BID Metoprolol Tartrate 100 Mg Tablet 1 Tab PO DAILY Vitals/I & O Vital Sign - Last 24 Hours 07/30/18 07/30/18 07/30/18 07/30/18 14:49 19:10 20:00 23:15 Temp 97.4 97.5 98.0 97.4 97.5 98.0 Pulse 64 57 62 Resp 16 17 17 B/P (MAP) 143/66 (91) 169/67 (101) 121/51 (74) Pulse Ox 97 96 93 O2 Delivery Room Air Room Air Room Air Room Air 07/31/18 07/31/18 07/31/18 07/31/18 03:04 07:00 08:00 08:30 Temp 98.1 97.3 98.1 97.3 Pulse 61 61 61 Resp 18 18 B/P (MAP) 126/65 (85) 142/66 (91) 142/66 Pulse Ox 97 95 O2 Delivery Room Air Room Air Room Air 07/31/18 11:00 Temp 97.6 97.6 Pulse 90 Resp 18 B/P (MAP) 145/68 (93) Pulse Ox 96 O2 Delivery Room Air Intake and Output 07/30/18 07/30/18 07/31/18 14:59 22:59 06:59 Intake Total 700 ml 700 ml Output Total 0 ml 200 ml Balance 700 ml 500 ml BALJIT KAISER III DO Jul 31, 2018 13:55
--- NOTE | 2018-07-31 13:56 | DS ---
DATE OF DISCHARGE: 07/31/2018 ADMISSION DIAGNOSES: Hypertensive emergency with left-sided weakness and transient ischemic attack. DISCHARGE DIAGNOSIS: Resolving transient ischemic attack, resolving hypertensive urgency. CONSULTS: Dr. Farris. PROCEDURES: None. HOSPITAL COURSE: The patient is an elderly male who presented with hypertensive emergency. He was admitted. We gave him IV Lasix and p.o. antihypertensives. We got his pressures down, his TIA symptoms of left weakness resolved. We checked an echocardiogram, his ejection fraction was 55%. Carotid Dopplers did not show any severe disease. Overall, clinically he has done great. I did see him and examined this morning. We plan to discharge with close outpatient followup. DISPOSITION: Home. ACTIVITY: As tolerated. DIET: Low sodium. MEDICATIONS: Please see the MRAD. TOTAL TIME: 36 minutes. BERNAL Lloyd KAISER DO DR: MURPHY/elvis JOB#: [id number] / [id number]
[2018-07-31] MEDS ORDERED: POTASSIUM CHLORIDE 10 MEQ TABLET.ER. PO ONE (14:00)
--- NOTE | 2018-07-31 15:07 | NUR ---
Discharge Note: QASIM MORE 2 EUGENE Discharge instructions and discharge home medications reviewed with Patient and a copy given. All questions have been answered and understanding verbalized. The following instructions and handouts were given: Thiamine, Hypokalemia and stroke discharge education Discontinued IV Patient discharged to home with self care via wheelchair
--- NOTE | 2018-07-31 17:43 | PDOC ---
PROGRESS NOTES Assessment Assessment Metabolic encephalopathy. Dizziness. Hypertensive urgency, SBP 197 mmHg. Beta-Roberto Carlos over dose, mild. Seizure x 1, Hx. HTN. Heavy alcohol drinking before abstinence. Memory decline, cognitive function impairment. DM. Obesity. No evidence of acute CVA this time. No convincing changes of NPH. RECOMMENDATIONS/PLAN: BP control. Treat medical diseases. Vit B1 100 mg daily. Discussed with his in all detail at bedside on 08/07/18. FU with PCP. FU with neurology as needed. EEG on 07/30/18: WNL. No seizure activity. HISTORY OF THE PRESENT ILLNESS: 72-y-old male patient with above medical diseases took extra doses of Metoprolol as he thought his BP might be high. However, after taking extra pills he felt dizziness, light headiness, flushing sense from his LE to up UE and head, and he felt very weak. He was brought to the ER of [facility] due to concerns of acute CVA. No focalized sensory or motor deficits. Past Medical History Cardiovascular: HTN Pulmonary: No pertinent hx GI: No pertinent hx Heme/Onc: No pertinent hx Hepatobiliary: No pertinent hx Psych: No pertinent hx Rheumatologic: No pertinent hx Infectious disease: No pertinent hx ENT: No pertinent hx Renal/: No pertinent hx Endocrine: Diabetes Dermatology: No pertinent hx Past Surgical History No major surgery recently. Family History Diabetes, Hypertension Social History Smoke: No ALCOHOL: Drinking alcohol for many years, but drank heavily about 750 ml or more of Sammy Abdul with proved alcohol 80% on a daily basis for about 2 years before quitting about 2 years ago. Drugs: None Lives with his at home. ALLERGY: NKDA MEDICATIONS: Refer to [facility] REVIEW OF SYSTEMS: Constitutional: Obesity. Head: No recent traumatic brain or head injury. Skin: No edema, or rash. Ear: No infection. Eyes: No vision loss or color blindness. Nose: No bleeding or purulent discharges. Hearing: No hearing decrease. Neck: No injury. Cardiac: HTN, HLD. Pulmonary: COPD. GI: No GI ulcer, GI bleeding. Urinary/genital: No dysuria, incontinence, urinary retention. Endocrinologic: Diabetes Mellitus, obesity. Skeletomuscular: No muscular atrophy, deformity. Neurological: see HP. Psychiatric: Denies drug use/abuse. Otherwise, not [id number] review of systems. PHYSICAL EXAMINATION: General appearance is in no acute distress. HEENT: Normocephalic and nontraumatic. Eyes, nose, ears, and throat are unremarkable. Neck is supple. No lymphadenopathy. No crepitus. Cardiovascular: S1, S2, regular rate and rhythm. Pulmonary: Clear to auscultation bilaterally. Abdomen: Bowel sounds are positive. Abdomen is soft, nontender, and nondistended. Extremities: No rash, lesions, or edema. No restriction of range of motion NEUROLOGICAL EXAMINATION: Alert Oriented to time, place and person. PERRL. EOMI. CN: no focal findings. Muscle tone: within normal. Muscle strength: 5 DTR: 2 Plantar reflex: Flexor response bilaterally Gait: At baseline normal. Sensory exam: no abnormal findings. No other cerebellar signs elicited. Objective Objective Vital Signs Date Time Temp Pulse Resp B/P (MAP) Pulse Ox O2 Delivery O2 Flow Rate FiO2 07/31/18 11:00 97.6 90 18 145/68 (93) 96 Room Air 97.6 Intake and Output 07/31/18 07:00 Intake Total 1400 ml Output Total 200 ml Balance 1200 ml Intake Oral 1400 ml Output Urine Total 200 ml # Voids 3 Vitals Signs Vitals VS - Last 72 Hours, by Label Date Time Temp Pulse Resp B/P (MAP) Pulse Ox O2 Delivery O2 Flow Rate FiO2 07/31/18 11:00 97.6 90 18 145/68 (93) 96 Room Air 97.6 07/31/18 08:30 61 142/66 07/31/18 08:00 Room Air 07/31/18 07:00 97.3 61 18 142/66 (91) 95 Room Air 97.3 07/31/18 03:04 98.1 61 18 126/65 (85) 97 Room Air 98.1 07/30/18 23:15 98.0 62 17 121/51 (74) 93 Room Air 98.0 07/30/18 20:00 Room Air 07/30/18 19:10 97.5 57 17 169/67 (101) 96 Room Air 97.5 07/30/18 14:49 97.4 64 16 143/66 (91) 97 Room Air 97.4 07/30/18 10:50 97.4 58 16 135/73 (93) 95 Room Air 97.4 07/30/18 08:38 59 126/60 07/30/18 08:00 Room Air 07/30/18 07:00 97.7 59 16 126/60 (82) 96 Room Air 97.7 Laboratory Laboratory Laboratory Tests Test 07/30/18 20:24 07/31/18 03:40 07/31/18 08:06 07/31/18 11:14 Glucose (Fingerstick) 106 mg/dL (70-99) 123 mg/dL (70-99) 161 mg/dL (70-99) White Blood Count 6.7 x10^3/uL (4.0-11.0) Red Blood Count 4.64 x10^6/uL (4.30-5.70) Hemoglobin 14.8 g/dL (13.0-17.5) Hematocrit 43.9 % (39.0-53.0) Mean Corpuscular Volume 95 fL (79-100) Mean Corpuscular Hemoglobin 32 pg (25-35) Mean Corpuscular Hemoglobin Concent 34 g/dL (31-37) Red Cell Distribution Width 13.7 % (11.5-14.5) Platelet Count 183 x10^3/uL (140-400) Neutrophils (%) (Auto) 59 % (31-73) Lymphocytes (%) (Auto) 24 % (24-48) Monocytes (%) (Auto) 14 % (0-9) Eosinophils (%) (Auto) 4 % (0-3) Basophils (%) (Auto) 0 % (0-3) Neutrophils # (Auto) 3.9 x10^3uL (1.8-7.7) Lymphocytes # (Auto) 1.6 x10^3/uL (1.0-4.8) Monocytes # (Auto) 0.9 x10^3/uL (0.0-1.1) Eosinophils # (Auto) 0.2 x10^3/uL (0.0-0.7) Basophils # (Auto) 0.0 x10^3/uL (0.0-0.2) Sodium Level 139 mmol/L (136-145) Potassium Level 3.2 mmol/L (3.5-5.1) Chloride Level 101 mmol/L (98-107) Carbon Dioxide Level 28 mmol/L (21-32) Anion Gap 10 (6-14) Blood Urea Nitrogen 16 mg/dL (8-26) Creatinine 1.1 mg/dL (0.7-1.3) Estimated GFR (Cockcroft-Gault) 66.0 BUN/Creatinine Ratio 15 (6-20) Glucose Level 121 mg/dL (70-99) Calcium Level 9.0 mg/dL (8.5-10.1) Total Bilirubin 0.4 mg/dL (0.2-1.0) Aspartate Amino Transf (AST/SGOT) 22 U/L (15-37) Alanine Aminotransferase (ALT/SGPT) 54 U/L (16-63) Alkaline Phosphatase 68 U/L (46-116) Total Protein 6.9 g/dL (6.4-8.2) Albumin 3.3 g/dL (3.4-5.0) Albumin/Globulin Ratio 0.9 (1.0-1.7) Medication Medications Current Medications Bisacodyl (Dulcolax Tab) 5 mg PRN DAILY PRN PO CONSTIPATION Last administered on 07/30/18at 21:18; Start 07/30/18 at 21:00; Stop 07/31/18 at 15:09; Status DC Calcium Carbonate/ Glycine (Tums) 500 mg PRN AFTMEALHC PRN PO INDIGESTION Last administered on 07/31/18at 03:48; Start 07/30/18 at 18:45; Stop 07/31/18 at 15:09 ; Status DC Potassium Chloride (Klor-Con) 40 meq 1X ONCE PO Last administered on at 14:01; Start 07/31/18 at 14:00; Stop 07/31/18 at 14:01; Status DC Comment Review of Relevant I have reviewed the following items bebe (where applicable) has been applied. LATONIA GRIFFITH MD Jul 31, 2018 17:43
--- NOTE | 2018-07-31 19:05 | EEG ---
DATE OF SERVICE: 07/31/2018 ELECTROENCEPHALOGRAM NUMBER: [id number] OBJECTIVE: This is a 72-year-old male patient with history of seizure in the past and alcohol drinking. EEG was requested to evaluate cerebral activity and seizure activity. METHODS: Twenty electrodes were applied according to the international 10-20 electrode placement system. EKG monitoring, hyperventilation, intermittent photic stimulation, monopolar and bipolar montages are routinely utilized. The record was obtained on a digital system with video monitoring. FINDINGS: 1. Background: The patient was recorded in the awake and drowsy states. No actual sleep state was recorded. The overall background amplitude is 5-15 microvolts. A posterior dominant rhythm of 8 Hz is observed. 2. Abnormalities: No specific epileptiform discharge or electrographic seizure is seen. No focal or diffuse slowing. 3. Activation: Hyperventilation was performed with good efforts and normal response. Intermittent photic stimulation was performed with photic driving. No specific epileptiform discharge or electrographic seizure induced by hyperventilation or intermittent photic stimulation. IMPRESSION: This electroencephalogram is within the broad normal limits of the study for the awake and drowsy states. No actual sleep state was recorded. No focal, lateralizing, specific epileptiform discharge or electrographic seizure is seen. LATONIA GRIFFITH MD DR: [email or web address]/elvis JOB#: [id number] / [id number]
== END 2018-07-31 15:08 | disposition home or self-care (01) | DRG 304 ==
LOC: ER 16:36 → 2 NORTH 17:51
PROVIDERS: ADMIT Internal Medicine; ATTEND Internal Medicine
DX: I16.1 Hypertensive emergency (principal); G93.41 Metabolic encephalopathy; E87.1 Hypo-osmolality and hyponatremia; G45.9 Transient cerebral ischemic attack, unspecified; E11.9 Type 2 diabetes mellitus without complications; E66.9 Obesity, unspecified; I11.0 Hypertensive heart disease with heart failure; I50.9 Heart failure, unspecified; R56.9 Unspecified convulsions; Z82.49 Family history of ischemic heart disease and other diseases of the circulatory system; Z83.3 Family history of diabetes mellitus; Z86.73 Personal history of transient ischemic attack (TIA), and cerebral infarction without residual deficits; F10.10 Alcohol abuse, uncomplicated; F41.9 Anxiety disorder, unspecified
CPT/HCPCS: 36415; 70450; 70551; 71045; 80048; 80053; 80061; 80307; 82962; 83735; 84443; 84484; 85025; 85610; 90471; 90756; 93005; 93306; 93880; 95816; 96361; 96374; 96375; G0480; J1815; J2060; J2405; J3490; J7030; 92610; 97116; 99285-25; G0378; Q2035